=== PATIENT | male | born 1985 | race Two or more races ===

== ENCOUNTER 2016-08-21 12:08 | Inpatient (IN) | payer OTHER ==
[2016-08-21 12:22] VITALS: BMI 27.3
[2016-08-21] MEDS ORDERED: SODIUM CHLORIDE 1,000 ML IV STA (12:41)
[2016-08-21] MEDS ORDERED: HYDROmorphone HCL CARPU-JECT 1 MG/1 ML DISP.SYRIN IVPB ONE ×2 (12:41→15:38)
--- NOTE | 2016-08-21 12:41 | PDOC ---
History of Present Illness - General History Source: Patient Exam Limitations: No Limitations - History of Present Illness Initial Comments: 08/21/16 13:07 The patient is a 30 year old male, with no significant past medical history, who presents to the emergency department complaining of swelling, erythema, and pain to the right knee since yesterday. The patient reports he was sitting in the car on his way to work yesterday morning, when his pain began. The patient reports he himself was not driving. 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 The patient denies any trauma to the right knee or any bug bites. The patient reports as the pain went on his swelling and pain worsened. As per partner, the patient had a TMax of 99.6 after taking tylenol. The patient reports he can bend his knee slowly, but has to keep it straight so he can mildly tolerate the pain. The patient reports he can not bare any weight on his right leg, secondary to swelling and pain. He reports he got to the ED by hopping on his left leg. Partner reports hes been hopping on his left leg since last night. The patient denies any chills, cough, headache, dizziness, shortness of breath, or diaphoresis. The patient denies any recent travel. Allergies: None reported. Past Surgical History: None reported. Social History: Non-smoker. Denies alcohol or drug use. <Ronak Richardson - Last Filed: 08/21/16 14:34> - General History Source: Patient Exam Limitations: No Limitations <Aaliyah Crowe - Last Filed: 08/24/16 08:38> - General Chief Complaint: Redness To Affected Area Stated Complaint: KNEE PAIN Time Seen by Provider: 08/21/16 12:34 Past History <Ronak Richardson - Last Filed: 08/21/16 14:34> - Past Medical History Other medical history: none - Psycho/Social/Smoking Cessation Hx Anxiety: No Suicidal Ideation: No Smoking History: Never smoked Have you smoked in the past 12 months: No Information on smoking cessation initiated: No Hx Alcohol Use: No Drug/Substance Use Hx: No Substance Use Type: None <Aaliyah Crowe - Last Filed: 08/24/16 08:38> - Past Medical History Allergies/Adverse Reactions: Allergies Allergy/AdvReac Type Severity Reaction Status Date / Time No Known Allergies Allergy Verified 08/21/16 12:18 Home Medications: Ambulatory Orders NK [No Known Home Medication] 08/21/16 Review of Systems - Review of Systems Able to Perform ROS?: Yes Comments:: 08/21/16 13:08 GENERAL/CONSTITUTIONAL: Yes: +fever. No: chills, weakness, loss of appetite. HEAD, EYES, EARS, NOSE AND THROAT: No: change in vision, ear pain, discharge, sore throat, throat swelling. CARDIOVASCULAR: No: chest pain, lightheadedness, palpitations, syncope RESPIRATORY: No: cough, shortness of breath, wheezing, hemoptysis, stridor. GASTROINTESTINAL: No: nausea, vomiting, abdominal cramping, diarrhea, rectal bleeding, constipation. GENITOURINARY: No: dysuria, hematuria, frequency, urgency, flank pain. MUSCULOSKELETAL: Yes: +right knee pain, +right knee swelling, +right knee erythema. No: back pain, neck pain. SKIN AND BREASTS: No: lesions, pallor, rash or easy bruising. NEUROLOGIC: No: headache, vertigo, paresthesias, weakness ENDOCRINE: No: unexplained weight gain or loss HEMATOLOGIC/LYMPHATIC: No: anemia, easy bleeding, swelling nodes <Richardson,Giomilsy - Last Filed: 08/21/16 14:34> *Physical Exam - Vital Signs Last Vital Signs Temp Pulse Resp BP Pulse Ox 98.4 F 103 H 18 121/82 100 08/21/16 12:20 08/21/16 12:20 08/21/16 12:20 08/21/16 12:20 08/21/16 12:20 - Physical Exam Comments: 08/21/16 13:08 GENERAL: The patient is in no acute distress. HEAD: Normal with no signs of trauma. EYES: PERRLA, EOMI, sclera anicteric, conjunctiva clear. ENT: Ears normal, nares patent, oropharynx clear without exudates. Moist mucous membranes. NECK: Normal range of motion, supple without lymphadenopathy, JVD, or masses. LUNGS: Breath sounds equal, clear to auscultation bilaterally. No wheezes, and no crackles. HEART:Regular rate and rhythm, normal S1 and S2 without murmur, rub or gallop. ABDOMEN: Soft, nontender, normoactive bowel sounds. No guarding, no rebound. EXTREMITIES: Right knee is erythematous and warm. Fluid palpated in right knee joint. Actived range of motion is limited in the right knee due to pain. Able to flex right knee to 90 degrees. Very tender to palpation in the right knee. No clubbing or cyanosis. NEUROLOGICAL: Cranial nerves II through XII grossly intact. Normal speech. No focal neurological deficits. MUSCULOSKELETAL: Back non-tender to palpation, no CVA tenderness SKIN: Warm, Dry, normal turgor, no rashes or lesions noted. <Ronak Richardson - Last Filed: 08/21/16 14:34> - Vital Signs Last Vital Signs Temp Pulse Resp BP Pulse Ox 98.4 F 103 H 18 121/82 100 08/21/16 12:20 08/21/16 12:20 08/21/16 12:20 08/21/16 12:20 08/21/16 12:20 <Aaliyah Crowe - Last Filed: 08/24/16 08:38> ED Treatment Course - LABORATORY CBC & Chemistry Diagram: 08/21/16 12:57 08/21/16 12:57 - RADIOLOGY Radiograph Interpretation: 08/21/16 14:25 EXAM: Knee X-Ray INTERPRETED BY: Dr. Bradley REVIEWED BY: Dr. Crowe IMPRESSION: Prominent anterior soft tissues. <Ronak Richardson - Last Filed: 08/21/16 14:34> - LABORATORY CBC & Chemistry Diagram: 08/24/16 05:35 08/22/16 07:00 <Aaliyah Crowe - Last Filed: 08/24/16 08:38> Medical Decision Making - Medical Decision Making 08/21/16 14:34 First call placed to Dr. Lowry at 13:30. Second call placed to Dr. Lowry at 14.30. Awaiting call back. Case discussed at 14:32. Dr. Lowry will come evaluate the patient in approximately 40 minutes. <Ronak Richardson - Last Filed: 08/21/16 14:34> - Critical Care Time Total Critical Care Time (minutes): 35 Critical Care Statement: The care of this patient involved high complexity decision making to prevent further life threatening deterioration of the patient 's condition and/or to evalute & treat vital organ system(s) failure or risk of failure. - Medical Decision Making 08/21/16 12:41 A portion of this note was documented by scribe services under my direction. I have reviewed the details of the note, within reason, and agree with the documentation with the following case summary and management plan written by me. 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 Lowry again He will be in to see patient in 45 minutes 08/21/16 15:03 Laboratory Tests 08/21/16 08/21/16 12:57 12:57 WBC 25.0 H Hgb 15.6 Hct 46.2 Plt Count 195 Neutrophils % 83.0 H Lymphocytes % 9.0 Sodium 137 Potassium 3.8 Chloride 98 Carbon Dioxide 27 Anion Gap 12 BUN 12 Creatinine 0.8 Random Glucose 89 08/21/16 15:25 Fluid withdrawn by Ortho at bedside Will send for culture now Case reviewed with Dr Reynolds Will admit to Med Surg Will give Vancomycin and Zosyn Clinical impression: cellulitis, infected pre patellar bursitis, possibly Septic joint <Aaliyah Crowe - Last Filed: 08/24/16 08:38> *DC/Admit/Observation/Transfer - Attestations Scribe Attestion: 08/21/16 13:08 Documentation prepared by Ronak Richardson, acting as medical collections representative for Aaliyah Crowe MD. <Ronak Richardson - Last Filed: 08/21/16 14:34> - Discharge Dispostion Admit: Yes <Aaliyah Crowe - Last Filed: 04/04/17 08:38> Diagnosis at time of Disposition: Cellulitis Qualifiers: Site of cellulitis: extremity Site of cellulitis of extremity: lower extremity Laterality: right Qualified Code(s): L03.115 - Cellulitis of right lower limb - Discharge Dispostion Condition at time of disposition: Stable
[2016-08-21] MEDS ORDERED: HYDROmorphone HCL CARPU-JECT 1 MG/1 ML DISP.SYRIN ONE ×2 (13:13→15:41)
[2016-08-21 13:54] LABS: MCHC 33.7 g/dl (32.0-35.9); MEAN CELL VOLUME 86.2 fl (80-96); MEAN PLT VOLUME 8.5 fl (7.5-11.1); PLATELET COUNT 195 K/MM3 (134-434); RDW 13.9 % (11.9-15.9)
[2016-08-21 14:21] LABS: PLATELET ESTIMATE ADEQUATE (NORMAL)
[2016-08-21 14:24] LABS: ALBUMIN 4.3 g/dl (3.4-5.0); ANION GAP 12 (8-16); BILIRUBIN,TOTAL 1.7 mg/dL (0.2-1.0); CALCIUM 9.1 mg/dL (8.5-10.1); CO2 27 mmol/L (21-32); CREATININE 0.8 mg/dL (0.7-1.3); GLUCOSE,RANDOM 89 mg/dL (74-106); SGOT/AST 16 U/L (15-37); SGPT/ALT 27 U/L (12-78); TOT PROT 7.6 g/dl (6.4-8.2)
[2016-08-21 14:25] LABS: ALK PHOS 67 U/L (45-117)
[2016-08-21] MEDS ORDERED: VANCOMYCIN 1,000 MG in DEXTROSE 5%-WATER - 250 ML IVPB ONE (15:28)
[2016-08-21] MEDS ORDERED: VANCOMYCIN 1 GRAM (PRE-DOCKED) 250 ML IVPB ONE (15:42)
[2016-08-21] MEDS ORDERED: ACETAMINOPHEN 325 MG TABLET (FP) PO ONE (16:06)
[2016-08-21] MEDS ORDERED: ACETAMINOPHEN 325 MG TABLET (FP) ONE (16:06)
[2016-08-21] MEDS ORDERED: PIPERACILLIN/TAZOB 3.375 GM/50 ML PRE-DOCKED IVPB SCH (16:49)
[2016-08-21] MEDS ORDERED: VANCOMYCIN 1,250 MG in DEXTROSE 5%-WATER - 250 ML IVPB ONE (16:54)
--- NOTE | 2016-08-21 17:29 | HP ---
CHIEF COMPLAINT: right knee pain PCP:none HISTORY OF PRESENT ILLNESS: 30 year old male with no known PMHx presents to the emergency room with c/o right knee erythema, swelling, pain, fever since yesterday. Unable to bear weight on affected side. NO other associated symptoms. He is a construction equipment mechanic. Does not remember injury. Has never had skin/wound infection before. Sexually active with his . NO primary physician. No medications taken at home. ER course was notable for: (1)wbc 25; HR 107; temp 100.6 (2) knee xray showing some anterior knee swelling Recent Travel: no PAST MEDICAL HISTORY: none PAST SURGICAL HISTORY: none Social History: Smoking:no Alcohol:social Drugs: no Family History: Allergies No Known Allergies Allergy (Verified 08/21/16 12:18) HOME MEDICATIONS: Home Medications Medication Instructions Recorded NK [No Known Home Medication] 08/21/16 REVIEW OF SYSTEMS CONSTITUTIONAL: Absent: fever, chills, diaphoresis, generalized weakness, malaise, loss of appetite, weight change HEENT: Absent: rhinorrhea, nasal congestion, throat pain, throat swelling, difficulty swallowing, mouth swelling, ear pain, eye pain, visual changes CARDIOVASCULAR: Absent: chest pain, syncope, palpitations, irregular heart rate, lightheadedness , peripheral edema RESPIRATORY: Absent: cough, shortness of breath, dyspnea with exertion, orthopnea, wheezing, stridor, hemoptysis GASTROINTESTINAL: Absent: abdominal pain, abdominal distension, nausea, vomiting, diarrhea, constipation, melena, hematochezia GENITOURINARY: Absent: dysuria, frequency, urgency, hesitancy, hematuria, flank pain, genital pain MUSCULOSKELETAL: Positive: right knee swelling, erythema, pain Absent: myalgia, arthralgia, joint swelling, back pain, neck pain SKIN: Positive: right knee erythema HEMATOLOGIC/IMMUNOLOGIC: Absent: easy bleeding, easy bruising, lymphadenopathy, frequent infections ENDOCRINE: Absent: unexplained weight gain, unexplained weight loss, heat intolerance, cold intolerance NEUROLOGIC: Absent: headache, focal weakness or paresthesias, dizziness, unsteady gait, seizure, mental status changes, bladder or bowel incontinence PSYCHIATRIC: Absent: anxiety, depression, suicidal or homicidal ideation, hallucinations. PHYSICAL EXAMINATION Vital Signs - 24 hr 08/21/16 16:12 Temperature 100.6 F H Pulse Rate [ 108 H Apical] Respiratory 20 Rate Blood Pressure 118/67 [Left Arm] O2 Sat by Pulse 95 Oximetry (%) GENERAL: Awake, alert, and fully oriented, in no acute distress. HEAD: Normal with no signs of trauma. EYES: Pupils equal, round and reactive to light, extraocular movements intact, sclera anicteric, conjunctiva clear. No lid lag. EARS, NOSE, THROAT: Ears normal, nares patent, oropharynx clear without exudates. Moist mucous membranes. NECK: Normal range of motion, supple without lymphadenopathy, JVD, or masses. LUNGS: Breath sounds equal, clear to auscultation bilaterally. No wheezes, and no crackles. No accessory muscle use. HEART: Regular rate and rhythm, normal S1 and S2 without murmur, rub or gallop. ABDOMEN: Soft, nontender, not distended, normoactive bowel sounds, no guarding, no rebound, no masses. No hepatomegaly or splenomegaly. MUSCULOSKELETAL: Normal range of motion at all joints. No bony deformities or tenderness. No CVA tenderness. UPPER EXTREMITIES: 2+ pulses, warm, well-perfused. No cyanosis. No clubbing. No peripheral edema. LOWER EXTREMITIES: 2+ pulses, warm, well-perfused. No calf tenderness. No peripheral edema. Right knee swelling, erythema, limited ROM, NEUROLOGICAL: Cranial nerves II-XII intact. Normal speech. Normal gait. PSYCHIATRIC: Cooperative. Good eye contact. Appropriate mood and affect. SKIN: right knee cellulits ASSESSMENT/PLAN: 30 year old male with no known past medical history presents with right knee swelling, erythema and pain, admitted for sepsis secondary to bursitis. #sepsis secondary to right knee cellulitis/bursitis: -trend white count, monitor vitals -lactic acid; IVF -prophylactic vanc/zosyn -fluid culture. blood culture -knee xray showing anterior soft tissue swelling -MRI -ID consult -ortho consult FEN: Fluids: NS 125mls/hr Electrolytes: wnl Diet: regular VTE: lovenox Disposition: IV antibiotics Problem List - Problem (1) Septic infrapatellar bursitis of right knee Code(s): M71.161 - OTHER INFECTIVE BURSITIS, RIGHT KNEE B96.89 - OTH BACTERIAL AGENTS THE CAUSE OF DISEASES CLASSD [id number] Visit type - Emergency Visit Emergency Visit: Yes ED Registration Date: 08/21/16 Care time: The patient presented to the Emergency Department on the above date and was hospitalized for further evaluation of their emergent condition. - New Patient This patient is new to me today: Yes Date on this admission: 08/21/16 - Critical Care Critical Care patient: No
--- NOTE | 2016-08-21 17:45 | CONSULT ---
Consult Consult Specialty:: infectious diseases Reason for Consultation:: cellulitis of the knee joint - History of Present Illness History of Present Illness: 30 year old male with no known PMHx presents to the emergency room with c/o right knee erythema, swelling, pain, fever since yesterday. Unable to bear weight on affected side. NO other associated symptoms. 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 patient stated the swelling came on suddenly - History Source History Provided By: Patient Limitations to Obtaining History: No Limitations - Alcohol/Substance Use Hx Alcohol Use: No - Smoking History Smoking history: Never smoked Have you smoked in the past 12 months: No Home Medications - Allergies Allergies/Adverse Reactions: Allergies Allergy/AdvReac Type Severity Reaction Status Date / Time No Known Allergies Allergy Verified 08/21/16 12:18 - Home Medications Home Medications: Ambulatory Orders NK [No Known Home Medication] 08/21/16 Review of Systems - Review of Systems Constitutional: reports: Chills, Fever Eyes: reports: No Symptoms HENT: reports: No Symptoms Neck: reports: No Symptoms Cardiovascular: reports: No Symptoms Respiratory: reports: No Symptoms Gastrointestinal: reports: No Symptoms Genitourinary: reports: No Symptoms Musculoskeletal: reports: Joint Pain, Joint Swelling Integumentary: reports: Change in Color, Erythema Neurological: reports: No Symptoms Endocrine: reports: No Symptoms Hematology/Lymphatic: reports: No Symptoms Psychiatric: reports: No Symptoms Physical Exam Vital Signs: Vital Signs Temperature 100.6 F H 08/21/16 16:12 Pulse Rate 108 H 08/21/16 16:12 Respiratory Rate 20 08/21/16 16:12 Blood Pressure 118/67 08/21/16 16:12 O2 Sat by Pulse Oximetry (%) 95 08/21/16 16:12 Constitutional: Yes: Well Nourished, Calm, Moderate Distress Eyes: Yes: Conjunctiva Clear HENT: Yes: Atraumatic, Normocephalic Neck: Yes: Supple, Trachea Midline Cardiovascular: Yes: Regular Rate and Rhythm Respiratory: Yes: Regular, CTA Bilaterally Gastrointestinal: Yes: Normal Bowel Sounds, Soft Musculoskeletal: Yes: Joint Stiffness, Joint Swelling, Other Extremities: Yes: Erythema (knee joint right) Integumentary: Yes: Erythema (all around rt kne joint) Neurological: Yes: Alert, Oriented Psychiatric: Yes: Alert Imaging - Results X-ray: Report Reviewed, Image Reviewed Assessment/Plan patient was evaluated by ortho aspiration tried with minimal fluid i think this is a septic joint septic joint cellulitis of the rt knee fever plan will start vanco zosyn stat mri if the joint does not improve will need opening
[2016-08-21] MEDS ORDERED: PIPERACILLIN/TAZOB 3.375 GM 3.375 GM in DEXTROSE 5%-WATER - 50 ML IVPB SCH (18:00)
--- NOTE | 2016-08-21 18:09 | PN ---
Teaching Attending Note Name of Resident: Jessa Guerrero ATTENDING PHYSICIAN STATEMENT I saw and evaluated the patient. I reviewed the resident's note and discussed the case with the resident. I agree with the resident's findings and plan as documented. SUBJECTIVE: This is a 30-year-old man with no significant past medical history who comes to the ER today because of pain in his right leg and knee. This started suddenly yesterday while he was sitting in a car. He has had fever. He is unable to bend his right knee and is unable to walk on his right leg. He denies trauma or bites to his right leg/knee. He works in construction. He denies recent travel. OBJECTIVE: Vital Signs Period Temp Pulse Resp BP Sys/Forman Pulse Ox Last 24 Hr 98.4 F-100.6 F 103-108 18-20 118-121/67-82 95-100 HEART: S1 S2, tachycardic LUNGS: Clear ABDOMEN: Soft, non-tender, non-distended, normal BS EXTREMITIES: Erythema and tenderness of right knee and proximal right lower leg. Fluctuant area distal to patella ASSESSMENT AND PLAN: This is a healthy 30-year-old man who presented to the ER complaining of sudden onset of redness, pain and swelling involving his right knee. 1. Sepsis secondary to RLE cellulitis and pre-patellar bursitis vs septic arthritis of right knee - Vancomycin ordered - Orthopedic surgery, ID consults - Check lactic acid
--- NOTE | 2016-08-21 23:36 | PN ---
Progress Note (short form) - Note Progress Note: consult dictated septic prepatellar bursitis aspiration performed in ER, cultures sent continue abx will follow
[2016-08-22 00:21] LABS: URINE MARIJUANA THC NEGATIVE ng/ml (CUTOFF=50)
[2016-08-22] MEDS: ACETAMINOPHEN 325 MG TABLET (FP) PO PRN ×3 (00:34→17:26)
[2016-08-22] MEDS ORDERED: PIPERACILLIN/TAZOB 3.375 GM 50 ML IVPB ONE (01:39)
[2016-08-22] MEDS: PIPERACILLIN/TAZOB 3.375 GM 50 ML IVPB SCH ×3 (01:43→17:33)
[2016-08-22] MEDS ORDERED: PIPERACILLIN/TAZOB 3.375 GM/50 ML PRE-DOCKED IVPB ONE (01:48)
[2016-08-22] MEDS ORDERED: morphine CARPU-JECT 2 MG/1 ML DISP.SYRIN IVPUSH ONE ×2 (01:50→03:08)
--- NOTE | 2016-08-22 03:15 | HOSP ---
Subjective - Review of Symptoms Events since last encounter: Pt had fever of 102.4 one hour after receiving tylenol. Morphine 2mg IVP ordered. Zokevin ordered x1 dose (as next dose to start was the follow day's afternoon). Approximately 1 hour after getting morphine pt still in severe pain and looks to be in mild/moderate distress from pain. Another 2mg of morphine IVP ordered. Also ordered ms-contin 15 mg bid for baseline pain control. Temp is down to 100.9 at this time. Physical Examination Vital Signs: Vital Signs Temperature 100.9 F H 08/22/16 02:12 Pulse Rate 113 H 08/22/16 01:33 Respiratory Rate 20 08/22/16 01:33 Blood Pressure 115/61 08/22/16 01:33 O2 Sat by Pulse Oximetry (%) 96 08/21/16 20:47 Visit type - Emergency Visit Emergency Visit: Yes ED Registration Date: 08/21/16 Care time: The patient presented to the Emergency Department on the above date and was hospitalized for further evaluation of their emergent condition. - New Patient This patient is new to me today: Yes Date on this admission: 08/26/16 - Critical Care Critical Care patient: No
[2016-08-22] MEDS: VANCOMYCIN 1,250 MG in DEXTROSE 5%-WATER - 250 ML IVPB SCH ×2 (03:43→15:51)
[2016-08-22 08:23] LABS: BASOPHIL 0.1 % (0-2.0); MCH 29.1 pg (25.7-33.7); MEAN CELL VOLUME 85.6 fl (80-96); MEAN PLT VOLUME 8.3 fl (7.5-11.1); NEUTROPHILS 89.2 % (42.8-82.8); PLATELET COUNT 176 K/MM3 (134-434); RDW 13.4 % (11.9-15.9); WHITE BLOOD COUNT 27.7 K/mm3 (4.0-10.0)
[2016-08-22 08:56] LABS: CALCIUM 8.6 mg/dL (8.5-10.1); CREATININE 0.7 mg/dL (0.7-1.3)
--- NOTE | 2016-08-22 09:27 | PN ---
Progress Note, Physician - Current Medication List Current Medications: Active Medications Acetaminophen (Tylenol -) 650 mg PO Q4H PRN PRN Reason: FEVER OR PAIN Last Admin: 08/22/16 06:54 Dose: 650 mg Enoxaparin Sodium (Lovenox -) 40 mg SQ DAILY ADRIAN Vancomycin HCl 1,250 mg/ (Dextrose) 250 mls @ 250 mls/hr IVPB BID@0400,1600 ADRIAN PRN Reason: Protocol Last Admin: 08/22/16 03:43 Dose: 250 mls/hr Piperacillin Sod/Tazobactam Sod (Zosyn 3.375gm Ivpb (Pre-Docked)) 50 mls @ 100 mls/hr IVPB Q8H-IV ADRIAN PRN Reason: Protocol Last Admin: 08/22/16 01:43 Dose: 100 mls/hr Sodium Chloride (Normal Saline -) 1,000 mls @ 125 mls/hr IV ASDIR ADRIAN Oxycodone HCl (Roxicodone -) 5 mg PO Q4H PRN PRN Reason: PAIN - Objective Vital Signs: Vital Signs Temperature 99.5 F 08/22/16 06:00 Pulse Rate 103 H 08/22/16 06:00 Respiratory Rate 20 08/22/16 06:00 Blood Pressure 106/66 08/22/16 06:00 O2 Sat by Pulse Oximetry (%) 96 08/21/16 20:47 Constitutional: Yes: Well Nourished, No Distress, Calm Eyes: Yes: WNL, Conjunctiva Clear HENT: Yes: WNL, Atraumatic, Normocephalic Neck: Yes: WNL, Supple, Trachea Midline Cardiovascular: Yes: WNL, Regular Rate and Rhythm Respiratory: Yes: WNL, Regular, CTA Bilaterally Gastrointestinal: Yes: WNL, Normal Bowel Sounds Musculoskeletal: Yes: Other (erythema, warmth and stiffness of left knee) Extremities: Yes: WNL Edema: No Integumentary: Yes: WNL Neurological: Yes: WNL, Alert, Oriented ...Motor Strength: WNL Psychiatric: Yes: WNL Labs: CBC, BMP 08/22/16 07:00 08/22/16 07:00 Impression/Plan Impression/Plan: 30 year old man admitted for sepsis due to infectious bersitis with surrounding cellulitis -was febrile overnight but non-toxic appearing and hemodynamically stable -pt states erythema is markedly improved from yesterday -cont vanc/zosyn as per ID recs -s/p aspiration by ortho attending -follow up cultures -start IVF at 125/hr Visit type - Emergency Visit Emergency Visit: Yes ED Registration Date: 08/21/16 Care time: The patient presented to the Emergency Department on the above date and was hospitalized for further evaluation of their emergent condition. - New Patient This patient is new to me today: Yes Date on this admission: 08/22/16 - Critical Care Critical Care patient: No
[2016-08-22] MEDS: SODIUM CHLORIDE 1,000 ML IV SCH ×2 (09:42→20:00)
[2016-08-22] MEDS: ENOXAPARIN NA (PORCINE) 40 MG/0.4 ML DISP.SYRIN SQ SCH ×2 (09:48→15:56)
[2016-08-22] MEDS ORDERED: morphine SO4 SUSTAINED ACTING 15 MG TABLET.SA PO SCH (10:00)
[2016-08-22] MEDS: oxyCODONE HCL 5 MG TABLET PO PRN ×2 (11:37→16:03)
[2016-08-22] MEDS ORDERED: LIDOCAINE HCL 1%, 10 MG/ML (50 mL VIAL) SQ ONE (17:12)
[2016-08-22] MEDS ORDERED: morphine CARPU-JECT 4 MG/1 ML DISP.SYRIN IVPUSH ONE ×2 (17:13→18:00)
[2016-08-22] MEDS ORDERED: LORAZEPAM CARPU-JECT 2 MG/ML DISP.SYRIN IVPUSH ONE (17:14)
--- NOTE | 2016-08-22 17:27 | PN ---
Progress Note, Physician History of Present Illness: patient spiking fevers erythema spreading ortho reevaluating plan to open the joint by bedside tenderness and fluctuation still present - Current Medication List Current Medications: Active Medications Acetaminophen (Tylenol -) 650 mg PO Q4H PRN PRN Reason: FEVER OR PAIN Last Admin: 08/22/16 06:54 Dose: 650 mg Enoxaparin Sodium (Lovenox -) 40 mg SQ DAILY [facility] Last Admin: 08/22/16 15:56 Dose: 40 mg Vancomycin HCl 1,250 mg/ (Dextrose) 250 mls @ 250 mls/hr IVPB BID@0400,1600 ADRIAN PRN Reason: Protocol Last Admin: 08/22/16 15:51 Dose: 250 mls/hr Piperacillin Sod/Tazobactam Sod (Zosyn 3.375gm Ivpb (Pre-Docked)) 50 mls @ 100 mls/hr IVPB Q8H-IV ADRIAN PRN Reason: Protocol Last Admin: 08/22/16 09:40 Dose: 100 mls/hr Sodium Chloride (Normal Saline -) 1,000 mls @ 125 mls/hr IV ASDIR ADRIAN Last Admin: 08/22/16 09:42 Dose: 125 mls/hr Oxycodone HCl (Roxicodone -) 5 mg PO Q4H PRN PRN Reason: PAIN Last Admin: 08/22/16 16:03 Dose: 5 mg Oxycodone HCl (Roxicodone -) 10 mg PO Q4H PRN PRN Reason: PAIN Last Admin: 08/22/16 11:37 Dose: 10 mg - Objective Vital Signs: Vital Signs Temperature 99.9 F H 08/22/16 14:42 Pulse Rate 101 H 08/22/16 14:42 Respiratory Rate 19 08/22/16 14:42 Blood Pressure 111/63 08/22/16 14:42 O2 Sat by Pulse Oximetry (%) 96 08/22/16 09:00 Constitutional: Yes: Calm, Mild Distress Cardiovascular: Yes: Regular Rate and Rhythm Respiratory: Yes: Regular, CTA Bilaterally Gastrointestinal: Yes: Normal Bowel Sounds, Soft Musculoskeletal: Yes: Joint Swelling, Other Extremities: Yes: Erythema (knee joint right) Integumentary: Yes: Erythema, Other Neurological: Yes: Alert, Oriented Psychiatric: Yes: Alert, Oriented Labs: CBC, BMP 08/22/16 07:00 08/22/16 07:00 - ....Imaging MRI: Report Reviewed, Image Reviewed Assessment/Plan patient was evaluated by ortho aspiration tried with minimal fluid i think this is a septic joint septic joint cellulitis of the rt knee fever plan continue vanco zosyn if patient does not improve after drainage might need exploration rest as per the team
[2016-08-22] MEDS ORDERED: LIDOCAINE HCL 1%, 10 MG/ML (20ML VIAL) NR ONE (17:30)
--- NOTE | 2016-08-22 18:08 | PN ---
Progress Note (short form) - Note Progress Note: Pt c/o continued pain, no improvement since yesterday Tm102 RLE persistent fluctuance mild erythema focal warmth no effusion NVID MRI: collection in prepatellar bursa a/p: septic prepatellar bursitis I reviewed today's findings with the patient. -advised that he has a significant collection on MRI and has spiked fevers through abx -recommend bedside lancing and packing -reviewed risks: bleeding, persistent or spreading of infection, skin nerve injury, need for further debridement -benefits: help to clear infection, improve pain -alternative: wait with antibiotics, with a large collection this may not be effective and will take considerably longer to heal -patient's questions were addressed, he elected to proceed Procedure: The skin was prepped with chlorhexidine and injected about the area of fluctuance with 20cc of 1% lidocaine. The patient was given 4mg of morphine IV push and 1 mg of ativan for comfort. The skin was repreped and a sterile field was established. The area of fluctuance was lanced with an 11 blade. Blunt spreading was used to dissect through any pockets and approximately 10cc of pus was expressed from the wound. 4mg of morphine additional was given during the blunt spreading. Iodoform packing was then placed into the cavity. A compressive dressing was placed. -pulse-ox placed, showing patient at 92% O2 sat after procedure, will start NC 2L, monitor pulse ox while waiting for morphine to wear off -will continue abx -continue DVT proph -f/u cx/sensitivities -plan to remove packing 1-2 days
--- NOTE | 2016-08-22 23:35 | CONS ---
DATE OF CONSULTATION: DATE OF DICTATION: 08/21/2016 REASON FOR CONSULTATION: Right knee pain. HISTORY OF PRESENT ILLNESS: This is a 30-year-old gentleman who presented to the emergency room complaining of right knee pain, swelling, and erythema as well as subjective fever. He is having difficulty ambulating. Did not report any injury. Denies any radiating pain, numbness, or tingling. No previous joint complaints. PAST MEDICAL HISTORY: Denies. PAST SURGICAL HISTORY: Denies. SOCIAL HISTORY: Denies tobacco use, social alcohol use. MEDICATION: Denies. REVIEW OF SYSTEMS: Positive for fever. Otherwise no respiratory, GI, , hematologic, endocrine, neurologic symptoms. PHYSICAL EXAMINATION: Vital signs: This gentleman has a current temperature of 100.6 and is somewhat tachycardic. General: He is alert and oriented x3. He is seen lying in hospital stretcher. Extremities: Examination of the right lower extremity demonstrates erythema about the anterior aspect of the knee. There were no breaks in the skin or other lesions. There is swelling over the inferior portion of the patella. There is no effusion. Range of motion is 5 degrees to 10 degrees with discomfort. Abdomen: Soft and nontender. Distal sensation is intact by touch. 2+ dorsalis pedis pulse, 5/5 distal motor. It should be noted the area of swelling was palpated and found to be slightly fluctuant. Radiographs reviewed demonstrating soft tissue swelling present on the physical examination. He has got no bony pathology. Laboratory results are reviewed demonstrating elevated white count to 25. ASSESSMENT: A 30-year-old male with septic prepatellar bursitis. PLAN: I reviewed today's findings with the patient. I discussed that he has infection to the anterior portion of his knee. I recommended aspiration at this point to obtain a culture. I reviewed the risks, benefits, and alternatives of aspiration and after reviewing these, patient elected to proceed. PROCEDURE: The right knee was prepped with chlorhexidine. Under sterile technique, 18-gauge needle was inserted into the bursa. Scant amount of purulent fluid was withdrawn, less than 1 mL. No further fluid was able to be aspirated at that point. The needle was withdrawn and a dressing was placed. Cultures were sent. The patient after aspiration was started on antibiotics . We will await the cultures to target his antibiotic regimen. He will be admitted for IV antibiotics, placed on DVT prophylaxis. He may weight bear as tolerated. Will follow up tomorrow. Jania [id number] MTDD
[2016-08-23] MEDS: PIPERACILLIN/TAZOB 3.375 GM 50 ML IVPB SCH ×3 (01:44→18:18)
[2016-08-23] MEDS: VANCOMYCIN 1,250 MG in DEXTROSE 5%-WATER - 250 ML IVPB SCH (03:55)
[2016-08-23] MEDS: oxyCODONE HCL 5 MG TABLET PO PRN ×3 (03:59→16:08)
[2016-08-23] MEDS: SODIUM CHLORIDE 1,000 ML IV SCH ×3 (04:00→15:22)
[2016-08-23 09:46] LABS: BASOPHIL 0.1 % (0-2.0); EOSINOPHIL 0.1 % (0-4.5); MCH 29.2 pg (25.7-33.7); MCHC 33.9 g/dl (32.0-35.9); MEAN CELL VOLUME 86.1 fl (80-96); MEAN PLT VOLUME 8.3 fl (7.5-11.1); NEUTROPHILS 84.2 % (42.8-82.8); PLATELET COUNT 164 K/MM3 (134-434); RDW 13.6 % (11.9-15.9); WHITE BLOOD COUNT 16.9 K/mm3 (4.0-10.0)
[2016-08-23] MEDS: ENOXAPARIN NA (PORCINE) 40 MG/0.4 ML DISP.SYRIN SQ SCH (09:59)
--- NOTE | 2016-08-23 12:17 | PN ---
Progress Note, Physician - Current Medication List Current Medications: Active Medications Acetaminophen (Tylenol -) 650 mg PO Q4H PRN PRN Reason: FEVER OR PAIN Last Admin: 08/22/16 17:26 Dose: 650 mg Enoxaparin Sodium (Lovenox -) 40 mg SQ DAILY [facility] Last Admin: 08/23/16 09:59 Dose: 40 mg Vancomycin HCl 1,250 mg/ (Dextrose) 250 mls @ 250 mls/hr IVPB BID@0400,1600 ADRIAN PRN Reason: Protocol Last Admin: 08/23/16 03:55 Dose: 250 mls/hr Piperacillin Sod/Tazobactam Sod (Zosyn 3.375gm Ivpb (Pre-Docked)) 50 mls @ 100 mls/hr IVPB Q8H-IV ADRIAN PRN Reason: Protocol Last Admin: 08/23/16 09:58 Dose: 100 mls/hr Sodium Chloride (Normal Saline -) 1,000 mls @ 125 mls/hr IV ASDIR [facility]RIAN Last Admin: 08/23/16 09:59 Dose: Not Given Oxycodone HCl (Roxicodone -) 5 mg PO Q4H PRN PRN Reason: PAIN Last Admin: 08/23/16 09:58 Dose: 5 mg Oxycodone HCl (Roxicodone -) 10 mg PO Q4H PRN PRN Reason: PAIN Last Admin: 08/22/16 11:37 Dose: 10 mg - Objective Vital Signs: Vital Signs Temperature 99.6 F 08/23/16 06:00 Pulse Rate 102 H 08/23/16 06:00 Respiratory Rate 18 08/23/16 06:00 Blood Pressure 106/58 08/23/16 06:00 O2 Sat by Pulse Oximetry (%) 96 08/22/16 21:00 Constitutional: Yes: Well Nourished, No Distress, Calm Eyes: Yes: WNL, Conjunctiva Clear HENT: Yes: WNL, Atraumatic, Normocephalic Neck: Yes: WNL, Supple, Trachea Midline Cardiovascular: Yes: WNL, Regular Rate and Rhythm Respiratory: Yes: WNL, Regular, CTA Bilaterally Gastrointestinal: Yes: WNL, Normal Bowel Sounds Musculoskeletal: Yes: WNL Extremities: Yes: Erythema (less intense in color but now spreading up thigh) Edema: No Integumentary: Yes: WNL Neurological: Yes: WNL, Alert, Oriented ...Motor Strength: WNL Psychiatric: Yes: WNL Labs: CBC, BMP 08/23/16 09:15 08/22/16 07:00 Impression/Plan Impression/Plan: 30 year old man admitted for sepsis due to infectious bersitis with surrounding cellulitis -was febrile yesterday but non-toxic appearing and hemodynamically stable -pt states erythema is markedly improved in intensity of color but now spreading to upper thigh -cont vanc/zosyn as per ID recs -s/p aspiration by ortho attending and now s/p bedside I+D 08/23 -follow up cultures -cont IVF at 125/hr Visit type - Emergency Visit Emergency Visit: Yes ED Registration Date: 08/21/16 Care time: The patient presented to the Emergency Department on the above date and was hospitalized for further evaluation of their emergent condition. - New Patient This patient is new to me today: No - Critical Care Critical Care patient: No
[2016-08-23 12:54] LABS: BASOPHIL 0.1 % (0-2.0); EOSINOPHIL 0.2 % (0-4.5); MCHC 33.4 g/dl (32.0-35.9); MEAN CELL VOLUME 86.8 fl (80-96); MEAN PLT VOLUME 8.5 fl (7.5-11.1); NEUTROPHILS 82.8 % (42.8-82.8); PLATELET COUNT 168 K/MM3 (134-434); RDW 13.9 % (11.9-15.9); WHITE BLOOD COUNT 17.7 K/mm3 (4.0-10.0)
--- NOTE | 2016-08-23 13:20 | PN ---
Progress Note (short form) - Note Progress Note: Orthopedics PA Progress Note S: Patient feeling well. States his pain has improved today. Also notes less swelling and redness. Denies fever/chills. O: NAD. VSS. Afebrile. R knee exam: Dressings removed. Wound packing removed. Pressure dressing applied. Erythema and warmth. Mild swelling. Limited ROM secondary to pain. NVID. WBC 17.7 Wound cxs + for growth of pyogenes beta hemolytic strep. A/P: 30 y/o male admitted with septic prepatellar bursitis -Packing removed today, pressure dressing applied -WBC decreased today, patient afebrile -Continue IV abx as per ID -Continue DVT prophylaxis
--- NOTE | 2016-08-23 15:06 | PN ---
Progress Note, Physician History of Present Illness: patients knee opened at bedside pus and fluid evacuated from the wound patient feels a little better pain still present - Current Medication List Current Medications: Active Medications Acetaminophen (Tylenol -) 650 mg PO Q4H PRN PRN Reason: FEVER OR PAIN Last Admin: 08/22/16 17:26 Dose: 650 mg Enoxaparin Sodium (Lovenox -) 40 mg SQ DAILY [facility]AN Last Admin: 08/23/16 09:59 Dose: 40 mg Piperacillin Sod/Tazobactam Sod (Zosyn 3.375gm Ivpb (Pre-Docked)) 50 mls @ 100 mls/hr IVPB Q8H-IV ADRIAN PRN Reason: Protocol Last Admin: 08/23/16 09:58 Dose: 100 mls/hr Sodium Chloride (Normal Saline -) 1,000 mls @ 125 mls/hr IV ASDIR ADRIAN Last Admin: 08/23/16 09:59 Dose: Not Given Clindamycin Phosphate (Cleocin 600 Mg Premix Ivpb -) 50 mls @ 100 mls/hr IVPB Q8H-IV ADRIAN Oxycodone HCl (Roxicodone -) 5 mg PO Q4H PRN PRN Reason: PAIN Last Admin: 08/23/16 09:58 Dose: 5 mg Oxycodone HCl (Roxicodone -) 10 mg PO Q4H PRN PRN Reason: PAIN Last Admin: 08/22/16 11:37 Dose: 10 mg - Objective Vital Signs: Vital Signs Temperature 98.7 F 08/23/16 14:48 Pulse Rate 100 H 08/23/16 14:48 Respiratory Rate 18 08/23/16 14:48 Blood Pressure 130/64 08/23/16 14:48 O2 Sat by Pulse Oximetry (%) 96 08/22/16 21:00 Constitutional: Yes: Well Nourished, Calm, Mild Distress Cardiovascular: Yes: Regular Rate and Rhythm Respiratory: Yes: Regular, CTA Bilaterally Gastrointestinal: Yes: Normal Bowel Sounds, Soft Musculoskeletal: Yes: Joint Stiffness, Joint Swelling, Other (cellulitis) Extremities: Yes: Erythema (of the knee joint) Integumentary: Yes: Erythema, Other Wound/Incision: Yes: Dressing Dry and Intact Neurological: Yes: Alert, Oriented Psychiatric: Yes: Alert, Oriented Labs: CBC, BMP 08/23/16 12:29 08/22/16 07:00 Assessment/Plan cx report noted i think this is a septic joint septic joint cellulitis of the rt knee fever plan will stop vanco will change to clinda zosyn await for sensitivities report wbc is still higher and has gone up patient needs a knee washout resent the cultures
[2016-08-23] MEDS: CLINDAMYCIN 600MG PREMIX IVPB 50 ML IVPB SCH (16:07)
--- NOTE | 2016-08-23 21:59 | PN ---
Physical Exam: SUBJECTIVE: Patient seen and examined still with pain. afebrile. Bedside I&D. OBJECTIVE: Vital Signs Period Temp Pulse Resp BP Sys/Forman Pulse Ox Last 24 Hr 98.7 F-101.2 F 100-107 18-18 106-130/58-64 95 GENERAL: The patient is awake, alert, and fully oriented, in no acute distress. HEAD: Normal with no signs of trauma. EYES: PERRL, extraocular movements intact, sclera anicteric, conjunctiva clear. No ptosis. ENT: Ears normal, nares patent, oropharynx clear without exudates, moist mucous membranes. NECK: Trachea midline, full range of motion, supple. LUNGS: Breath sounds equal, clear to auscultation bilaterally, no wheezes, no crackles, no accessory muscle use. HEART: Regular rate and rhythm, S1, S2 without murmur, rub or gallop. ABDOMEN: Soft, nontender, nondistended, normoactive bowel sounds, no guarding, no rebound, no hepatosplenomegaly, no masses. EXTREMITIES: 2+ pulses, warm, well-perfused, no edema. Right knee erythema, surrounding edema, NEUROLOGICAL: Cranial nerves II through XII grossly intact. Normal speech, gait not observed. PSYCH: Normal mood, normal affect. SKIN: Warm, dry, normal turgor, no rashes or lesions noted Laboratory Results - last 24 hr 08/23/16 08/23/16 09:15 12:29 WBC 16.9 H D 17.7 H RBC 4.08 4.20 Hgb 11.9 D 12.2 Hct 35.1 L 36.5 MCV 86.1 86.8 MCHC 33.9 33.4 RDW 13.6 13.9 Plt Count 164 168 MPV 8.3 8.5 Neutrophils % 84.2 H 82.8 Lymphocytes % 7.8 L D 9.1 Monocytes % 7.8 7.8 Eosinophils % 0.1 D 0.2 D Basophils % 0.1 0.1 Active Medications Generic Name Dose Route Start Last Admin Trade Name Freq PRN Reason Stop Dose Admin Acetaminophen 650 mg 08/21/16 16:47 08/22/16 17:26 Tylenol - PO 650 mg Q4H PRN Administration FEVER OR PAIN Enoxaparin Sodium 40 mg 08/22/16 10:00 08/23/16 09:59 Lovenox - SQ 40 mg DAILY ADRIAN Administration Piperacillin Sod/Tazobactam Sod 50 mls @ 100 mls/hr 08/22/16 02:00 08/23/16 18: 18 Zosyn 3.375gm Ivpb (Pre-Docked) IVPB 100 mls/hr Q8H-IV ADRIAN Administration Protocol Sodium Chloride 1,000 mls @ 125 mls/hr 08/22/16 09:15 08/23/16 15:22 Normal Saline - IV 125 mls/hr ASDIR ADRIAN Administration Clindamycin Phosphate 50 mls @ 100 mls/hr 08/23/16 16:00 08/23/16 16:07 Cleocin 600 Mg Premix Ivpb - IVPB 100 mls/hr Q8H-IV ADRIAN Administration Oxycodone HCl 5 mg 08/22/16 09:15 08/23/16 09:58 Roxicodone - PO 5 mg Q4H PRN Administration PAIN Oxycodone HCl 10 mg 08/22/16 09:24 08/23/16 16:08 Roxicodone - PO 10 mg Q4H PRN Administration PAIN ASSESSMENT/PLAN: 30 year old male with no known past medical history presents with right knee swelling, erythema and pain, admitted for sepsis secondary to bursitis. #sepsis secondary to right knee cellulitis/bursitis: drain today -trend white count, monitor vitals -lactic acid; IVF -IV zosyn and clinda -fluid culture. blood culture -knee xray showing anterior soft tissue swelling -MRI -ID consult -ortho consult FEN: Fluids: NS 125mls/hr Electrolytes: wnl Diet: regular VTE: lovenox Disposition: IV antibiotics Problem List - Problems (1) Septic infrapatellar bursitis of right knee Code(s): M71.161 - OTHER INFECTIVE BURSITIS, RIGHT KNEE B96.89 - OTH BACTERIAL AGENTS THE CAUSE OF DISEASES CLASSD [id number] Visit type - Emergency Visit Emergency Visit: Yes ED Registration Date: 08/21/16 Care time: The patient presented to the Emergency Department on the above date and was hospitalized for further evaluation of their emergent condition. - New Patient This patient is new to me today: No - Critical Care Critical Care patient: No
[2016-08-24] MEDS: CLINDAMYCIN 600MG PREMIX IVPB 50 ML IVPB SCH ×3 (01:55→17:16)
[2016-08-24] MEDS: PIPERACILLIN/TAZOB 3.375 GM 50 ML IVPB SCH ×3 (02:47→17:48)
[2016-08-24 07:29] LABS: BASOPHIL 0.2 % (0-2.0); EOSINOPHIL 0.2 % (0-4.5); MCH 29.5 pg (25.7-33.7); MCHC 34.2 g/dl (32.0-35.9); MEAN CELL VOLUME 86.3 fl (80-96); MEAN PLT VOLUME 8.5 fl (7.5-11.1); NEUTROPHILS 80.2 % (42.8-82.8); PLATELET COUNT 205 K/MM3 (134-434); RDW 13.7 % (11.9-15.9); WHITE BLOOD COUNT 14.7 K/mm3 (4.0-10.0)
[2016-08-24] MEDS: ENOXAPARIN NA (PORCINE) 40 MG/0.4 ML DISP.SYRIN SQ SCH (09:54)
[2016-08-24] MEDS: SODIUM CHLORIDE 1,000 ML IV SCH (09:57)
[2016-08-24] MEDS ORDERED: DOCUSATE SODIUM 100 MG CAPSULE (FP) PO SCH (10:00)
[2016-08-24] MEDS ORDERED: POLYETHYLENE GLYCOL 3350 119 GM BTL PO SCH (10:00)
--- NOTE | 2016-08-24 13:27 | PN ---
Progress Note (short form) - Note Progress Note: Pt states anterior pain is better but still quite painful especially with trying to walk. Tm100 RLE small fluctuance more erythema now extending into the thigh and the calf focal warmth no effusion NVID WBC 14 a/p: septic prepatellar bursitis I reviewed today's findings with the patient. We discussed that some factors appear improved. His white count is down though not to normal. His maximum temperature is 100. That being said, he appears to have more erythema about the leg and still has significant pain. There was some fluctuance to the wounds today. I placed a cotton swab from a culture into the open wound and purulent material was again obtained. A new culture was sent. Given this finding, I believe that an open debridement is the best option to help encourage a timely resolution of this infection. I reviewed there continues to be no evidence of involvement of the joint itself. I reviewed risks of debridement, again the same as yesterday including bleeding, skin nerve injury, need for further surgery, continued presence or spread of infection. We reviewed that this would be done under general anesthesia and carries risks such as heart attack, stroke, DVT, PE or . We reviewed the alternative of continued observation. The patient has elected to proceed with debridement. This will be performed this evening. A drain will be placed. Will continue IV abx. Will continue DVT proph.
--- NOTE | 2016-08-24 14:12 | PN ---
Physical Exam: SUBJECTIVE: Patient seen and examined, increased pain this am. Admits to more redness and warmth of area, right knee. OBJECTIVE: Vital Signs Period Temp Pulse Resp BP Sys/Forman Pulse Ox Last 24 Hr 97.9 F-101.2 F 92-111 18-20 107-130/51-82 95 GENERAL: The patient is awake, alert, and fully oriented, in no acute distress. HEAD: Normal with no signs of trauma. EYES: PERRL, extraocular movements intact, sclera anicteric, conjunctiva clear. No ptosis. ENT: Ears normal, nares patent, oropharynx clear without exudates, moist mucous membranes. NECK: Trachea midline, full range of motion, supple. LUNGS: Breath sounds equal, clear to auscultation bilaterally, no wheezes, no crackles, no accessory muscle use. HEART: Regular rate and rhythm, S1, S2 without murmur, rub or gallop. ABDOMEN: Soft, nontender, nondistended, normoactive bowel sounds, no guarding, no rebound, no hepatosplenomegaly, no masses. EXTREMITIES: 2+ pulses, warm, well-perfused, no edema. Right knee, erythematous increased from yesterday extending distally and proximally; no puss draining when palpated NEUROLOGICAL: Cranial nerves II through XII grossly intact. Normal speech, gait not observed. PSYCH: Normal mood, normal affect. SKIN: Warm, dry, normal turgor, no rashes or lesions noted Laboratory Results - last 24 hr 08/24/16 05:35 WBC 14.7 H RBC 3.99 L Hgb 11.8 Hct 34.5 L MCV 86.3 MCHC 34.2 RDW 13.7 Plt Count 205 D MPV 8.5 Neutrophils % 80.2 Lymphocytes % 9.5 Monocytes % 9.9 Eosinophils % 0.2 Basophils % 0.2 Active Medications Generic Name Dose Route Start Last Admin Trade Name Freq PRN Reason Stop Dose Admin Acetaminophen 650 mg 08/21/16 16:47 08/22/16 17:26 Tylenol - PO 650 mg Q4H PRN Administration FEVER OR PAIN Docusate Sodium 100 mg 08/24/16 10:00 08/24/16 11:09 Colace - PO 100 mg DAILY ADRIAN Administration Enoxaparin Sodium 40 mg 08/22/16 10:00 08/24/16 09:54 Lovenox - SQ 40 mg DAILY ADRIAN Administration Piperacillin Sod/Tazobactam Sod 50 mls @ 100 mls/hr 08/22/16 02:00 08/24/16 09: 54 Zosyn 3.375gm Ivpb (Pre-Docked) IVPB 100 mls/hr Q8H-IV ADRIAN Administration Protocol Sodium Chloride 1,000 mls @ 125 mls/hr 08/22/16 09:15 08/24/16 09:57 Normal Saline - IV 125 mls/hr ASDIR ADRIAN Administration Clindamycin Phosphate 50 mls @ 100 mls/hr 08/23/16 16:00 08/24/16 09:53 Cleocin 600 Mg Premix Ivpb - IVPB 100 mls/hr Q8H-IV ADRIAN Administration Oxycodone HCl 5 mg 08/22/16 09:15 08/23/16 09:58 Roxicodone - PO 5 mg Q4H PRN Administration PAIN Oxycodone HCl 10 mg 08/22/16 09:24 08/23/16 16:08 Roxicodone - PO 10 mg Q4H PRN Administration PAIN Polyethylene Glycol 17 gm 08/24/16 10:00 08/24/16 11:09 Miralax (For Daily Use) - PO 17 gm DAILY ADRIAN Administration Microbiology 08/21/16 12:57 Blood - Peripheral Venous Blood Culture - Preliminary NO GROWTH OBTAINED AFTER 72 HOURS, INCUBATION TO CONTINUE FOR 2 DAYS. 08/21/16 12:57 Blood - Peripheral Venous Blood Culture - Preliminary NO GROWTH OBTAINED AFTER 72 HOURS, INCUBATION TO CONTINUE FOR 2 DAYS. 08/21/16 15:25 Body Fluid - Other Gram Stain - Final 08/21/16 15:25 Body Fluid - Other Body Fluid Culture - Final Streptococcus Pyogenes Grp A 08/21/16 15:25 Body Fluid - Other Anaerobic Culture - Final NO ANAEROBES WERE ISOLATED ASSESSMENT/PLAN: 30 year old male with no known past medical history presents with right knee swelling, erythema and pain, admitted for sepsis secondary to bursitis. #sepsis secondary to right knee cellulitis/bursitis: -trend white count, monitor vitals -lactic acid; IVF -continue IV zosyn 3.375IVPB q8h (day 4) and clindamycin 600mg IVPB q8h (day 2) -wound culture +strep pyogenes -knee xray showing anterior soft tissue swelling -MRI sowing accumulation -ID consult -as per ortho; draining puss; will be taken to OR at 6pm tonight for drain placement -need daily draining /wound care FEN: Fluids: NS 125mls/hr Electrolytes: wnl Diet: regular VTE: lovenox Disposition: IV antibiotics/ drain Problem List - Problems (1) Septic infrapatellar bursitis of right knee Code(s): M71.161 - OTHER INFECTIVE BURSITIS, RIGHT KNEE B96.89 - OTH BACTERIAL AGENTS THE CAUSE OF DISEASES CLASSD ELSWHR Visit type - Emergency Visit Emergency Visit: Yes ED Registration Date: 08/21/16 Care time: The patient presented to the Emergency Department on the above date and was hospitalized for further evaluation of their emergent condition. - New Patient This patient is new to me today: No - Critical Care Critical Care patient: No
--- NOTE | 2016-08-24 14:13 | PN ---
Progress Note, Physician History of Present Illness: patient s erythema had increased now has spread to the ankle ortho reevaluated the patient plan to take to the or - Current Medication List Current Medications: Active Medications Acetaminophen (Tylenol -) 650 mg PO Q4H PRN PRN Reason: FEVER OR PAIN Last Admin: 08/22/16 17:26 Dose: 650 mg Docusate Sodium (Colace -) 100 mg PO DAILY [facility] Last Admin: 08/24/16 11:09 Dose: 100 mg Enoxaparin Sodium (Lovenox -) 40 mg SQ DAILY [facility] Last Admin: 08/24/16 09:54 Dose: 40 mg Piperacillin Sod/Tazobactam Sod (Zosyn 3.375gm Ivpb (Pre-Docked)) 50 mls @ 100 mls/hr IVPB Q8H-IV ADRIAN PRN Reason: Protocol Last Admin: 08/24/16 09:54 Dose: 100 mls/hr Sodium Chloride (Normal Saline -) 1,000 mls @ 125 mls/hr IV ASDIR [facility] Last Admin: 08/24/16 09:57 Dose: 125 mls/hr Clindamycin Phosphate (Cleocin 600 Mg Premix Ivpb -) 50 mls @ 100 mls/hr IVPB Q8H-IV ADRIAN Last Admin: 08/24/16 09:53 Dose: 100 mls/hr Oxycodone HCl (Roxicodone -) 5 mg PO Q4H PRN PRN Reason: PAIN Last Admin: 08/23/16 09:58 Dose: 5 mg Oxycodone HCl (Roxicodone -) 10 mg PO Q4H PRN PRN Reason: PAIN Last Admin: 08/23/16 16:08 Dose: 10 mg Polyethylene Glycol (Miralax (For Daily Use) -) 17 gm PO DAILY [facility] Last Admin: 08/24/16 11:09 Dose: 17 gm - Objective Vital Signs: Vital Signs Temperature 99.6 F 08/24/16 14:01 Pulse Rate 92 H 08/24/16 14:01 Respiratory Rate 19 08/24/16 14:01 Blood Pressure 109/54 08/24/16 14:01 O2 Sat by Pulse Oximetry (%) 95 08/23/16 21:00 Constitutional: Yes: Well Nourished, Mild Distress Neck: Yes: Supple Cardiovascular: Yes: Regular Rate and Rhythm Respiratory: Yes: Regular, CTA Bilaterally Gastrointestinal: Yes: Normal Bowel Sounds, Soft Musculoskeletal: Yes: Other Extremities: Yes: Erythema (extending to the ankle joint now from the knee and extending to thigh above) Integumentary: Yes: Erythema, Other Wound/Incision: Yes: Dressing Dry and Intact, Draining Neurological: Yes: Alert, Oriented Psychiatric: Yes: Alert, Oriented Labs: CBC, BMP 08/24/16 05:35 08/22/16 07:00 Assessment/Plan cx report noted i think this is a septic joint septic joint cellulitis of the rt knee fever plan continue current abx patient going to operating room resend the cultures await for repeat cultures
[2016-08-24] MEDS: oxyCODONE HCL 5 MG TABLET PO PRN (14:33)
--- NOTE | 2016-08-24 16:59 | PN ---
Teaching Attending Note Name of Resident: Jessa Guerrero ATTENDING PHYSICIAN STATEMENT I saw and evaluated the patient. I reviewed the resident's note and discussed the case with the resident. I agree with the resident's findings and plan as documented. SUBJECTIVE:unable to walk due to pain in the knee. states pain is controlled with pain medications. denies Cp, SOB,fever, chills sexually active with only. never been treated for STD in the past OBJECTIVE: Last Vital Signs Temp Pulse Resp BP Pulse Ox 99.6 F 92 H 19 109/54 95 08/24/16 14:01 08/24/16 14:01 08/24/16 14:08/24/16 14:08/23/16 21:00 General NAD Extremities erythema and warmth on medial and lateral R thigh and on fournier. area is tender. knee is wrapped in HEIKE bandage, c/d/i ASSESSMENT AND PLAN: 30yo M with no PMH presented to the ER and was admitted for further evaluation of their emergent condition 1. Sepsis due to septic R knee and surrounding cellulitis- s/p arthrocentesis with wound growin strep pyogenes. no clinical improvement and appears to have streaking at this time. plan for knee washout and drain placement tonight by ortho. Cont Abs per ID (clinda and zosyn) f/u repeat cx from tonights procedure. pain control 2. DVT ppx- lovenox
[2016-08-24] MEDS ORDERED: MIDAZOLAM HCL 2 MG/2 ML SINGLE DOSE VIAL ONE (18:12)
[2016-08-24] MEDS ORDERED: KETAMINE HCL 200 MG/20 ML VIAL ONE (18:12)
[2016-08-24] MEDS ORDERED: BUPIVACAINE HCL/PF 0.5% (5MG/ML) 10 ML VIAL ONE (18:15)
[2016-08-24] MEDS ORDERED: LIDOCAINE 1%/EPI 1:100000 (50 ML MULTI DOSE VIAL) ONE (18:19)
[2016-08-24] MEDS ORDERED: LIDOCAINE 1%/EPI 1:100000 (50 ML MULTI DOSE VIAL) PNB ONE (18:26)
[2016-08-24] MEDS ORDERED: BUPIVACAINE HCL/PF (5 MG/ML) 30 ML VIAL IJ ONE ×2 (18:26→18:45)
[2016-08-24] MEDS ORDERED: BACITRACIN 50,000 UNITS VIAL TP ONE (18:30)
[2016-08-24] MEDS: HYDROmorphone HCL CARPU-JECT 1 MG/1 ML DISP.SYRIN IVPUSH PRN ×4 (18:57→19:45)
[2016-08-24] MEDS ORDERED: HYDROmorphone HCL CARPU-JECT 2 MG/1 ML DISP.SYRIN ONE (19:00)
--- NOTE | 2016-08-24 19:04 | OP ---
Operative Note - Note: Operative Date: 08/24/16 Pre-Operative Diagnosis: right prepatellar septic bursitis Operation: right knee incision and drainage Post-Operative Diagnosis: Same as Pre-op Surgeon: Win Lowry Anesthesiologist/FARM ADVISOR: Yessy Singleotn Anesthesia: General Estimated Blood Loss (mls): 30 Operative Report Dictated: Yes
[2016-08-24] MEDS ORDERED: LACTATED RINGERS SOLUTION 1,000 ML IV SCH ×2 (19:15→19:17)
[2016-08-24] MEDS ORDERED: ACETAMINOPHEN 325 MG TABLET (FP) PO PRN (19:17)
--- NOTE | 2016-08-24 22:32 | OP ---
DATE OF ADMISSION: 08/24/2016 PREOPERATIVE DIAGNOSIS: Right prepatellar septic bursitis. POSTOPERATIVE DIAGNOSIS: Right prepatellar septic bursitis. PROCEDURE: Right knee incision and drainage. SURGEON: Win Lowry M.D. MEDICAL CODING SPECIALIST: None. ANESTHESIA TYPE: General plus local. COMPLICATIONS: None. SPECIMENS: Culture x1 POSTOPERATIVE CONDITION: Stable. INDICATION: This is a pleasant gentleman who has been admitted to the hospital and had a bedside drainage of a prepatellar septic bursitis. Despite drainage, he was having persistent symptoms and treatment options including nonoperative versus operative management were discussed. Patient elected to proceed with operative management. After discussion of the risks, which included bleeding, persistent infection, neurovascular injury, particularly to the skin nerves, spread of infection, need for further surgery including repeat debridement or expanded debridement. We reviewed medical risks such as heart attack, stroke, DVT, even . The patient voiced understanding, elected to proceed. PROCEDURE: The patient was brought to the operating room where he was placed supine on the operating room table. General anesthesia was administered. The right lower extremity was then prepped and draped in usual sterile fashion. He was already on his antibiotics, and therefore he received his scheduled doses. The usual timeout procedure was performed. At this point, the area over the previous stab wounds was anesthetized using 1% lidocaine. The incision was now expanded both proximally and distally, making total incision length of approximately 40 mm. I inspected the bursa. Initially a small amount of pus was encountered; however, upon finger dissection , a large pocket was discovered at the level of the superior pole of the patella and purulent material was expressed. This was then sent for culture. The wound was now debrided using rongeur as well as curet to debride the necrotic material. The wound was then copiously pulse irrigated. No further pockets were identified at this point. The superior margins of the wound was now approximated using simple 3-0 nylon sutures. A SARATH drain was now inserted. Then 2 sutures were placed on the inferior margin leaving an approximately 1 cm area in the middle where the drain was extending from. The sterile dressings were now placed. The patient was transferred to recovery room in stable condition. Jania THOMAS/[id number] MTDD
[2016-08-25] MEDS: oxyCODONE HCL 5 MG TABLET PO PRN ×4 (00:05→18:10)
[2016-08-25] MEDS: SODIUM CHLORIDE 1,000 ML IV SCH ×3 (02:14→22:02)
[2016-08-25] MEDS: PIPERACILLIN/TAZOB 3.375 GM 50 ML IVPB SCH ×3 (02:14→17:47)
[2016-08-25] MEDS: CLINDAMYCIN 600MG PREMIX IVPB 50 ML IVPB SCH ×3 (02:14→17:47)
[2016-08-25 08:11] LABS: CALCIUM 8.3 mg/dL (8.5-10.1); CREATININE 0.7 mg/dL (0.7-1.3)
[2016-08-25 08:17] LABS: BASOPHIL 0.3 % (0-2.0); EOSINOPHIL 0.3 % (0-4.5); MCH 29.4 pg (25.7-33.7); MCHC 34.1 g/dl (32.0-35.9); NEUTROPHILS 80.3 % (42.8-82.8); PLATELET COUNT 248 K/MM3 (134-434); RDW 13.9 % (11.9-15.9); WHITE BLOOD COUNT 15.5 K/mm3 (4.0-10.0)
[2016-08-25] MEDS: ENOXAPARIN NA (PORCINE) 40 MG/0.4 ML DISP.SYRIN SQ SCH (09:33)
[2016-08-25] MEDS: DOCUSATE SODIUM 100 MG CAPSULE (FP) PO SCH (09:34)
[2016-08-25] MEDS: POLYETHYLENE GLYCOL 3350 119 GM BTL PO SCH (09:34)
--- NOTE | 2016-08-25 11:20 | PROC ---
Procedure Note Procedure: Anesthesia Post op Pt seen and examined S;alert and awake O: Vital Signs Temperature 99.4 F 08/25/16 06:00 Pulse Rate 88 08/25/16 06:00 Respiratory Rate 18 08/25/16 06:00 Blood Pressure 90/63 08/25/16 06:00 O2 Sat by Pulse Oximetry (%) 96 08/24/16 21:00 CBC, BMP 08/25/16 06:30 08/25/16 06:30 A/P: Current Active Problems Cellulitis (Acute) Septic infrapatellar bursitis of right knee (Acute) s/p I& D knee Doing well post op Continue current care Fermin Yen MD
--- NOTE | 2016-08-25 13:20 | PN ---
Teaching Attending Note Name of Resident: Jessa Guerrero ATTENDING PHYSICIAN STATEMENT I saw and evaluated the patient. I reviewed the resident's note and discussed the case with the resident. I agree with the resident's findings and plan as documented. SUBJECTIVE:states pain has improved, continues to have swelling around the knee but states less tender than yesterday. denies CP, SOB,fever, chills, N/V/C/D OBJECTIVE: Last Vital Signs Temp Pulse Resp BP Pulse Ox 99.4 F 88 18 90/63 96 08/25/16 06:00 08/25/16 06:00 08/25/16 06:00 08/25/16 06:00 08/24/16 21:00 General NAD Extremities erythema and warmth on medial and lateral R thigh and on fournier appears to be extending past marking. knee is wrapped in HEIKE bandage, c/d/i drain present with serosangeous drainage ASSESSMENT AND PLAN: 30yo M with no PMH presented to the ER and was admitted for further evaluation of their emergent condition 1. Sepsis due to septic R knee and surrounding cellulitis- s/p arthrocentesis with repeat I&D done in the OR last night. awaiting repeat Cx. concern as erythema seems to be extending today however states pain has improved. will await on repeat cx. on Clinda/Zosyn. abx per ID. ortho on board. pain control 2. DVT ppx- lovenox
--- NOTE | 2016-08-25 16:03 | PN ---
Progress Note, Physician History of Present Illness: patient feeling better post surgery of the knee joint findings noted and discussed drainage in place - Current Medication List Current Medications: Active Medications Acetaminophen (Tylenol -) 650 mg PO Q4H PRN PRN Reason: FEVER OR PAIN Docusate Sodium (Colace -) 100 mg PO DAILY [facility] Last Admin: 08/25/16 09:34 Dose: 100 mg Enoxaparin Sodium (Lovenox -) 40 mg SQ DAILY [facility] Last Admin: 08/25/16 09:33 Dose: 40 mg Hydromorphone HCl (Dilaudid Injection -) 0.5 mg IVPUSH [id number] PRN PRN Reason: PAIN Stop: 08/27/16 19:18 Clindamycin Phosphate (Cleocin 600 Mg Premix Ivpb -) 50 mls @ 100 mls/hr IVPB Q8H-IV [facility] Last Admin: 08/25/16 09:34 Dose: 100 mls/hr Sodium Chloride (Normal Saline -) 1,000 mls @ 125 mls/hr IV ASDIR [facility] Last Admin: 08/25/16 12:08 Dose: 125 mls/hr Piperacillin Sod/Tazobactam Sod (Zosyn 3.375gm Ivpb (Pre-Docked)) 50 mls @ 100 mls/hr IVPB Q8H-IV [facility] PRN Reason: Protocol Last Admin: 08/25/16 09:34 Dose: 100 mls/hr Oxycodone HCl (Roxicodone -) 5 mg PO Q4H PRN PRN Reason: PAIN Last Admin: 08/25/16 11:09 Dose: 5 mg Oxycodone HCl (Roxicodone -) 10 mg PO Q4H PRN PRN Reason: PAIN Last Admin: 08/25/16 04:13 Dose: 10 mg Polyethylene Glycol (Miralax (For Daily Use) -) 17 gm PO DAILY [facility] Last Admin: 08/25/16 09:34 Dose: 17 gm - Objective Vital Signs: Vital Signs Temperature 99.5 F 08/25/16 14:29 Pulse Rate 96 H 08/25/16 14:29 Respiratory Rate 18 08/25/16 14:29 Blood Pressure 105/66 08/25/16 14:29 O2 Sat by Pulse Oximetry (%) 96 08/24/16 21:00 Constitutional: Yes: No Distress, Calm Cardiovascular: Yes: Regular Rate and Rhythm Respiratory: Yes: Regular, CTA Bilaterally Gastrointestinal: Yes: Normal Bowel Sounds, Soft Musculoskeletal: Yes: Other Extremities: Yes: Other Wound/Incision: Yes: Dressing Dry and Intact Neurological: Yes: Alert, Oriented Psychiatric: Yes: Alert, Oriented Labs: CBC, BMP 08/25/16 06:30 08/25/16 06:30 Assessment/Plan cx report noted i think this is a septic joint septic joint cellulitis of the rt knee fever plan continue current abx wbc still going high will await cx reports if wbc goes high then might have to reconsider washout
--- NOTE | 2016-08-25 16:03 | PN ---
Physical Exam: SUBJECTIVE: Patient seen and examined no new complaints , comfortable. Afebrile. OBJECTIVE: Vital Signs Period Temp Pulse Resp BP Sys/Forman Pulse Ox Last 24 Hr 98.9 F-100.3 F 85-98 16-20 90-140/56-83 95-97 GENERAL: The patient is awake, alert, and fully oriented, in no acute distress. HEAD: Normal with no signs of trauma. EYES: PERRL, extraocular movements intact, sclera anicteric, conjunctiva clear. No ptosis. ENT: Ears normal, nares patent, oropharynx clear without exudates, moist mucous membranes. NECK: Trachea midline, full range of motion, supple. LUNGS: Breath sounds equal, clear to auscultation bilaterally, no wheezes, no crackles, no accessory muscle use. HEART: Regular rate and rhythm, S1, S2 without murmur, rub or gallop. ABDOMEN: Soft, nontender, nondistended, normoactive bowel sounds, no guarding, no rebound, no hepatosplenomegaly, no masses. EXTREMITIES: 2+ pulses, warm, well-perfused, no edema. Right knee bursitis, with surrounding erythema extending proximally up thigh and distally down to ankle; this look s unchanged from yesterday. still warm; drain serosangiunous fluid NEUROLOGICAL: Cranial nerves II through XII grossly intact. Normal speech, gait not observed. PSYCH: Normal mood, normal affect. SKIN: Warm, dry, normal turgor, no rashes or lesions noted Laboratory Results - last 24 hr 08/25/16 08/25/16 06:30 06:30 WBC 15.5 H RBC 3.97 L Hgb 11.6 L Hct 34.1 L MCV 86.0 MCHC 34.1 RDW 13.9 Plt Count 248 D MPV 8.0 Neutrophils % 80.3 Lymphocytes % 10.2 Monocytes % 8.9 Eosinophils % 0.3 Basophils % 0.3 Sodium 138 Potassium 4.1 Chloride 102 Carbon Dioxide 26 Anion Gap 10 BUN 11 D Creatinine 0.7 Random Glucose 90 Calcium 8.3 L Active Medications Generic Name Dose Route Start Last Admin Trade Name Freq PRN Reason Stop Dose Admin Acetaminophen 650 mg 08/24/16 19:17 Tylenol - PO Q4H PRN FEVER OR PAIN Docusate Sodium 100 mg 08/25/16 10:00 08/25/16 09:34 Colace - PO 100 mg DAILY [facility] Administration Enoxaparin Sodium 40 mg 08/25/16 10:00 08/25/16 09:33 Lovenox - SQ 40 mg DAILY [facility] Administration Hydromorphone HCl 0.5 mg 08/24/16 19:17 Dilaudid Injection - IVPUSH 08/27/16 19:18 [id number] PRN PAIN Clindamycin Phosphate 50 mls @ 100 mls/hr 08/25/16 02:00 08/25/16 09:34 Cleocin 600 Mg Premix Ivpb - IVPB 100 mls/hr Q8H-IV [facility] Administration Sodium Chloride 1,000 mls @ 125 mls/hr 08/24/16 19:17 08/25/16 12:08 Normal Saline - IV 125 mls/hr ASDIR [facility] Administration Piperacillin Sod/Tazobactam Sod 50 mls @ 100 mls/hr 08/25/16 02:00 08/25/16 09: 34 Zosyn 3.375gm Ivpb (Pre-Docked) IVPB 100 mls/hr Q8H-IV [facility] Administration Protocol Oxycodone HCl 5 mg 08/24/16 19:17 08/25/16 11:09 Roxicodone - PO 5 mg Q4H PRN Administration PAIN Oxycodone HCl 10 mg 08/24/16 19:17 08/25/16 04:13 Roxicodone - PO 10 mg Q4H PRN Administration PAIN Polyethylene Glycol 17 gm 08/25/16 10:00 08/25/16 09:34 Miralax (For Daily Use) - PO 17 gm DAILY [facility] Administration Images -knee xray showing anterior soft tissue swelling -MRI sowing accumulation ASSESSMENT/PLAN: 30 year old male with no known past medical history presents with right knee swelling, erythema and pain, admitted for sepsis secondary to bursitis. #sepsis secondary to right knee cellulitis/bursitis: POD 1 I&D -white count trending down , monitor vitals -lactic acid wnl; IVF -continue IV zosyn 3.375IVPB q8h (day 4) and clindamycin 600mg IVPB q8h (day 2) -wound culture +strep pyogenes -repeat wound culture is still pending -ID : cont antibiotics -ortho; cont drain - start physical therapy as per ortho : oob to chair; FEN: Fluids: NS 125mls/hr Electrolytes: wnl Diet: regular VTE: lovenox Disposition: IV antibiotics/ drain Problem List - Problems (1) Septic infrapatellar bursitis of right knee Code(s): M71.161 - OTHER INFECTIVE BURSITIS, RIGHT KNEE B96.89 - OTH BACTERIAL AGENTS THE CAUSE OF DISEASES CLASSD [id number] Visit type - Emergency Visit Emergency Visit: Yes ED Registration Date: 08/21/16 Care time: The patient presented to the Emergency Department on the above date and was hospitalized for further evaluation of their emergent condition. - New Patient This patient is new to me today: No - Critical Care Critical Care patient: No
[2016-08-26] MEDS: CLINDAMYCIN 600MG PREMIX IVPB 50 ML IVPB SCH ×3 (03:00→17:40)
[2016-08-26] MEDS: PIPERACILLIN/TAZOB 3.375 GM 50 ML IVPB SCH ×3 (03:17→18:44)
[2016-08-26 07:41] LABS: MCH 29.5 pg (25.7-33.7); MCHC 33.9 g/dl (32.0-35.9); MEAN PLT VOLUME 7.5 fl (7.5-11.1); PLATELET COUNT 262 K/MM3 (134-434); RDW 14.2 % (11.9-15.9); WHITE BLOOD COUNT 16.2 K/mm3 (4.0-10.0)
[2016-08-26 08:45] LABS: CALCIUM 8.2 mg/dL (8.5-10.1); CREATININE 0.7 mg/dL (0.7-1.3)
[2016-08-26] MEDS ORDERED: PT OWN MED DRAWER 7, Y5N ONE (09:29)
[2016-08-26] MEDS: POLYETHYLENE GLYCOL 3350 119 GM BTL PO SCH (09:57)
[2016-08-26] MEDS: DOCUSATE SODIUM 100 MG CAPSULE (FP) PO SCH (09:57)
[2016-08-26] MEDS: ENOXAPARIN NA (PORCINE) 40 MG/0.4 ML DISP.SYRIN SQ SCH (09:57)
[2016-08-26 10:28] LABS: METAMYELOCYTE 3 % (0-2)
[2016-08-26 10:29] LABS: PLATELET ESTIMATE ADEQUATE (NORMAL)
[2016-08-26] MEDS: SODIUM CHLORIDE 1,000 ML IV SCH (12:58)
--- NOTE | 2016-08-26 13:59 | PN ---
Physical Exam: SUBJECTIVE: Patient seen and examined less pain, afebrile,. Off NC , o2 sating 98%. normotensive. Jesse SOTO, fever, cp , sob. Slight increase on wbc this am 15- >16. OBJECTIVE: Vital Signs Period Temp Pulse Resp BP Sys/Forman Pulse Ox Last 24 Hr 98.3 F-99.5 F 76-102 18-18 105-118/63-76 GENERAL: The patient is awake, alert, and fully oriented, in no acute distress. HEAD: Normal with no signs of trauma. EYES: PERRL, extraocular movements intact, sclera anicteric, conjunctiva clear. No ptosis. ENT: Ears normal, nares patent, oropharynx clear without exudates, moist mucous membranes. NECK: Trachea midline, full range of motion, supple. LUNGS: Breath sounds equal, clear to auscultation bilaterally, no wheezes, no crackles, no accessory muscle use. HEART: Regular rate and rhythm, S1, S2 without murmur, rub or gallop. ABDOMEN: Soft, nontender, nondistended, normoactive bowel sounds, no guarding, no rebound, no hepatosplenomegaly, no masses. EXTREMITIES: 2+ pulses, warm, well-perfused, no edema. Right LE ; less erythema of anterior thigh; same amt of erythema of lower leg. drain small amt serosangious fluid NEUROLOGICAL: Cranial nerves II through XII grossly intact. Normal speech, gait not observed. PSYCH: Normal mood, normal affect. SKIN: Warm, dry, normal turgor, no rashes or lesions noted Laboratory Results - last 24 hr 08/26/16 08/26/16 06:30 06:30 WBC 16.2 H RBC 4.07 Hgb 12.0 Hct 35.4 MCV 87.0 MCHC 33.9 RDW 14.2 Plt Count 262 MPV 7.5 Neutrophils % 73.0 Lymphocytes % 9.0 Monocytes % 7.0 Eosinophils % 1.0 D Basophils % 1.0 D Band Neutrophils 1.0 D Metamyelocytes 3 H Differential Comment Manual diff done Reactive Lymphocytes 5 Platelet Estimate Adequate Sodium 141 Potassium 4.1 Chloride 105 Carbon Dioxide 24 Anion Gap 12 BUN 10 Creatinine 0.7 Random Glucose 91 Calcium 8.2 L Active Medications Generic Name Dose Route Start Last Admin Trade Name Freq PRN Reason Stop Dose Admin Acetaminophen 650 mg 08/24/16 19:17 08/25/16 22:06 Tylenol - PO 650 mg Q4H PRN Administration FEVER OR PAIN Docusate Sodium 100 mg 08/25/16 10:00 08/26/16 09:57 Colace - PO 100 mg DAILY [facility] Administration Enoxaparin Sodium 40 mg 08/25/16 10:00 08/26/16 09:57 Lovenox - SQ 40 mg DAILY [facility] Administration Hydromorphone HCl 0.5 mg 08/24/16 19:17 Dilaudid Injection - IVPUSH 08/27/16 19:18 [id number] PRN PAIN Clindamycin Phosphate 50 mls @ 100 mls/hr 08/25/16 02:00 08/26/16 09:57 Cleocin 600 Mg Premix Ivpb - IVPB 100 mls/hr Q8H-IV [facility] Administration Sodium Chloride 1,000 mls @ 125 mls/hr 08/24/16 19:17 08/26/16 12:58 Normal Saline - IV 125 mls/hr ASDIR [facility] Administration Piperacillin Sod/Tazobactam Sod 50 mls @ 100 mls/hr 08/25/16 02:00 08/26/16 09: 58 Zosyn 3.375gm Ivpb (Pre-Docked) IVPB 100 mls/hr Q8H-IV [facility] Administration Protocol Oxycodone HCl 5 mg 08/24/16 19:17 08/25/16 18:10 Roxicodone - PO 5 mg Q4H PRN Administration PAIN Oxycodone HCl 10 mg 08/24/16 19:17 08/25/16 04:13 Roxicodone - PO 10 mg Q4H PRN Administration PAIN Polyethylene Glycol 17 gm 08/25/16 10:00 08/26/16 09:57 Miralax (For Daily Use) - PO 17 gm DAILY [facility] Administration Images -knee xray showing anterior soft tissue swelling -MRI sowing accumulation ASSESSMENT/PLAN: 30 year old male with no known past medical history presents with right knee swelling, erythema and pain, admitted for sepsis secondary to bursitis. #sepsis secondary to right knee cellulitis/bursitis: POD 2 I&D of right knee -white count slight up trend from 15.5 to 16.5 this am; afebrile, monitor vitals -lactic acid wnl; IVF -continue IV zosyn 3.375IVPB q8h (day 5) and clindamycin 600mg IVPB q8h (day 3) -wound culture wound culture +strep pyogenes -repeat wound culture is negative; anaerobes still pending -ID : cont antibiotics -ortho; cont drain -cleared by ortho to start PT - call out to ortho to see if patient need daily washing of wound site; FEN: Fluids: NS 125mls/hr Electrolytes: wnl Diet: regular VTE: lovenox Disposition: IV antibiotics/ drain Problem List - Problems (1) Septic infrapatellar bursitis of right knee Code(s): M71.161 - OTHER INFECTIVE BURSITIS, RIGHT KNEE B96.89 - OTH BACTERIAL AGENTS THE CAUSE OF DISEASES CLASSD [id number] Visit type - Emergency Visit Emergency Visit: Yes ED Registration Date: 08/21/16 Care time: The patient presented to the Emergency Department on the above date and was hospitalized for further evaluation of their emergent condition. - New Patient This patient is new to me today: No - Critical Care Critical Care patient: No
--- NOTE | 2016-08-26 14:06 | PN ---
Teaching Attending Note Name of Resident: Jessa Guerrero ATTENDING PHYSICIAN STATEMENT I saw and evaluated the patient. I reviewed the resident's note and discussed the case with the resident. I agree with the resident's findings and plan as documented. SUBJECTIVE:states pain has significantly improved. leg no longer feels warm. denies CP, SOB,fever, chills, N/V/C/D OBJECTIVE: Last Vital Signs Temp Pulse Resp BP Pulse Ox 98.3 F 82 18 118/76 96 08/26/16 06:00 08/26/16 06:00 08/26/16 06:00 08/26/16 06:00 08/24/16 21:00 General NAD Extremities erythema superior and inferior to knee on medial and lateral thigh and lateral leg. area however is not warm or tender. knee is wrapped in HEIKE bandage, c/d/i drain present with serosangeous drainage ASSESSMENT AND PLAN: 30yo M with no PMH presented to the ER and was admitted for further evaluation of their emergent condition 1. Sepsis due to septic R knee and surrounding cellulitis- s/p arthrocentesis with repeat I&D. repeat cx is negative. concern with increasing leukocytosis however clinically looks better. will call for ortho to come and evaluate if planned for repeated procedure and drain management. knee not evaluated as dressing has not been changed from surgery. on Clinda/Zosyn. abx per ID. ortho on board. pain control 2. DVT ppx- lovenox
--- NOTE | 2016-08-26 16:10 | PN ---
Progress Note, Physician History of Present Illness: patient feeling better still erythema present drainage tube draining - Current Medication List Current Medications: Active Medications Acetaminophen (Tylenol -) 650 mg PO Q4H PRN PRN Reason: FEVER OR PAIN Last Admin: 08/25/16 22:06 Dose: 650 mg Docusate Sodium (Colace -) 100 mg PO DAILY [facility] Last Admin: 08/26/16 09:57 Dose: 100 mg Enoxaparin Sodium (Lovenox -) 40 mg SQ DAILY [facility] Last Admin: 08/26/16 09:57 Dose: 40 mg Hydromorphone HCl (Dilaudid Injection -) 0.5 mg IVPUSH [id number] PRN PRN Reason: PAIN Stop: 08/27/16 19:18 Clindamycin Phosphate (Cleocin 600 Mg Premix Ivpb -) 50 mls @ 100 mls/hr IVPB Q8H-IV [facility] Last Admin: 08/26/16 09:57 Dose: 100 mls/hr Piperacillin Sod/Tazobactam Sod (Zosyn 3.375gm Ivpb (Pre-Docked)) 50 mls @ 100 mls/hr IVPB Q8H-IV [facility] PRN Reason: Protocol Last Admin: 08/26/16 09:58 Dose: 100 mls/hr Oxycodone HCl (Roxicodone -) 5 mg PO Q4H PRN PRN Reason: PAIN Last Admin: 08/25/16 18:10 Dose: 5 mg Oxycodone HCl (Roxicodone -) 10 mg PO Q4H PRN PRN Reason: PAIN Last Admin: 08/25/16 04:13 Dose: 10 mg Polyethylene Glycol (Miralax (For Daily Use) -) 17 gm PO DAILY [facility] Last Admin: 08/26/16 09:57 Dose: 17 gm - Objective Vital Signs: Vital Signs Temperature 98.9 F 08/26/16 14:43 Pulse Rate 86 08/26/16 14:43 Respiratory Rate 18 08/26/16 14:43 Blood Pressure 122/73 08/26/16 14:43 O2 Sat by Pulse Oximetry (%) 98 08/26/16 15:14 Constitutional: Yes: No Distress, Calm Cardiovascular: Yes: Regular Rate and Rhythm Respiratory: Yes: Regular, CTA Bilaterally Gastrointestinal: Yes: Normal Bowel Sounds, Soft Musculoskeletal: Yes: Other Extremities: Yes: Other (drain in left knee) Integumentary: Yes: Erythema, Other Wound/Incision: Yes: Dressing Dry and Intact, Draining Neurological: Yes: Alert, Oriented Psychiatric: Yes: Alert, Oriented Labs: CBC, BMP 08/26/16 06:30 08/26/16 06:30 Assessment/Plan cx report noted i think this is a septic joint septic joint cellulitis of the rt knee fever plan continue current abx wbc still going high repeat cx negative but wbc increasing if wbc does not decreasee patient will need another washout of the joint
[2016-08-27] MEDS: CLINDAMYCIN 600MG PREMIX IVPB 50 ML IVPB SCH ×4 (02:00→23:12)
[2016-08-27] MEDS: PIPERACILLIN/TAZOB 3.375 GM 50 ML IVPB SCH ×4 (02:01→23:13)
[2016-08-27 08:00] LABS: MCH 28.9 pg (25.7-33.7); MCHC 33.4 g/dl (32.0-35.9); MEAN CELL VOLUME 86.5 fl (80-96); MEAN PLT VOLUME 7.4 fl (7.5-11.1); PLATELET COUNT 369 K/MM3 (134-434); RDW 14.4 % (11.9-15.9); WHITE BLOOD COUNT 16.7 K/mm3 (4.0-10.0)
[2016-08-27 08:26] LABS: CALCIUM 9.2 mg/dL (8.5-10.1); COCKROFT - GAULT 157.34; CREATININE 0.8 mg/dL (0.7-1.3)
[2016-08-27 09:59] LABS: PLATELET ESTIMATE ADEQUATE (NORMAL)
--- NOTE | 2016-08-27 11:13 | PN ---
Progress Note (short form) - Note Progress Note: Patient states his pain is improving. AF VSS RLE mild soft tissue swelling about the incision diffuse but less prominent erythema focal warmth no effusion NVID WBC 16 a/p: septic prepatellar bursitis I reviewed today's findings with the patient. -overall clinical picture is improved but still not normal -can consider repeat debridement to ensure no further necrotic material or purulent material -will make pt NPO and book for OR -will discuss further this afternoon
[2016-08-27] MEDS: DOCUSATE SODIUM 100 MG CAPSULE (FP) PO SCH (12:33)
[2016-08-27] MEDS: ENOXAPARIN NA (PORCINE) 40 MG/0.4 ML DISP.SYRIN SQ SCH (12:33)
[2016-08-27] MEDS: POLYETHYLENE GLYCOL 3350 119 GM BTL PO SCH (12:34)
--- NOTE | 2016-08-27 15:12 | PN ---
Teaching Attending Note Name of Resident: Jessa Guerrero ATTENDING PHYSICIAN STATEMENT I saw and evaluated the patient. I reviewed the resident's note and discussed the case with the resident. I agree with the resident's findings and plan as documented. SUBJECTIVE:states pain continues to improve. pain only in patella region of the knee, denies CP, SOB, fever, chills, OBJECTIVE: Last Vital Signs Temp Pulse Resp BP Pulse Ox 98.8 F 85 18 123/77 95 08/27/16 08:59 08/27/16 08:59 08/27/16 08:59 08/27/16 08:59 08/26/16 21:00 General NAD CV S1 S2 RRR no murmur Extremities erythema improved from yesterday, now retracted no tender. minimal swelling. stiches noted on patella in place iwth SARATH drain with serosangeous drainage ASSESSMENT AND PLAN: 30yo M with no PMH presented to the ER and was admitted for further evaluation of their emergent condition 1. Sepsis due to septic R knee and surrounding cellulitis- s/p arthrocentesis with repeat I&D. repeat cx is negative. persistent leukocytosis agree with plan for washout of the knee. BCx negative. will check echo to ensure no endocarditis that can also be contributing to leukocytosis but low risk considering no hx of IVDA or no clinical signs suggestive. will obtain echo to r /o. on Clinda/Zosyn. abx per ID. ortho on board. pain control 2. DVT ppx- lovenox
--- NOTE | 2016-08-27 15:21 | PN ---
Physical Exam: SUBJECTIVE: Patient seen and examined afebrile, less pain,. Wound dressing changed, clean. 5ml of fluid on drain for 24hrs. OBJECTIVE: Vital Signs Period Temp Pulse Resp BP Sys/Forman Pulse Ox Last 24 Hr 98.4 F-98.8 F 76-91 18-18 118-124/71-77 95 GENERAL: The patient is awake, alert, and fully oriented, in no acute distress. HEAD: Normal with no signs of trauma. EYES: PERRL, extraocular movements intact, sclera anicteric, conjunctiva clear. No ptosis. ENT: Ears normal, nares patent, oropharynx clear without exudates, moist mucous membranes. NECK: Trachea midline, full range of motion, supple. LUNGS: Breath sounds equal, clear to auscultation bilaterally, no wheezes, no crackles, no accessory muscle use. HEART: Regular rate and rhythm, S1, S2 without murmur, rub or gallop. ABDOMEN: Soft, nontender, nondistended, normoactive bowel sounds, no guarding, no rebound, no hepatosplenomegaly, no masses. EXTREMITIES: 2+ pulses, warm, well-perfused, no edema. Right knee incision with drain, serosanginous fluid, no puss or fluctuance; erythema has decreased NEUROLOGICAL: Cranial nerves II through XII grossly intact. Normal speech, gait not observed. PSYCH: Normal mood, normal affect. SKIN: Warm, dry, normal turgor, no rashes or lesions noted Laboratory Results - last 24 hr 08/27/16 08/27/16 06:46 06:46 WBC 16.7 H RBC 4.37 Hgb 12.6 Hct 37.8 MCV 86.5 MCHC 33.4 RDW 14.4 Plt Count 369 D MPV 7.4 L Neutrophils % 77.0 Lymphocytes % 17.0 D Monocytes % 5.0 Differential Comment Manual diff done Reactive Lymphocytes 1 D Platelet Estimate Adequate Sodium 137 Potassium 4.2 Chloride 102 Carbon Dioxide 25 Anion Gap 10 BUN 14 D Creatinine 0.8 Random Glucose 90 Calcium 9.2 Active Medications Generic Name Dose Route Start Last Admin Trade Name Freq PRN Reason Stop Dose Admin Acetaminophen 650 mg 08/24/16 19:17 08/25/16 22:06 Tylenol - PO 650 mg Q4H PRN Administration FEVER OR PAIN Docusate Sodium 100 mg 08/25/16 10:00 08/27/16 12:33 Colace - PO Not Given DAILY [facility] Enoxaparin Sodium 40 mg 08/25/16 10:00 08/27/16 12:33 Lovenox - SQ Not Given DAILY [facility] Hydromorphone HCl 0.5 mg 08/24/16 19:17 Dilaudid Injection - IVPUSH 08/27/16 19:18 [id number] PRN PAIN Clindamycin Phosphate 50 mls @ 100 mls/hr 08/25/16 02:00 08/27/16 09:30 Cleocin 600 Mg Premix Ivpb - IVPB 100 mls/hr Q8H-IV [facility] Administration Piperacillin Sod/Tazobactam Sod 50 mls @ 100 mls/hr 08/25/16 02:00 08/27/16 09: 30 Zosyn 3.375gm Ivpb (Pre-Docked) IVPB 100 mls/hr Q8H-IV [facility] Administration Protocol Oxycodone HCl 5 mg 08/24/16 19:17 08/25/16 18:10 Roxicodone - PO 5 mg Q4H PRN Administration PAIN Oxycodone HCl 10 mg 08/24/16 19:17 08/25/16 04:13 Roxicodone - PO 10 mg Q4H PRN Administration PAIN Polyethylene Glycol 17 gm 08/25/16 10:00 08/27/16 12:34 Miralax (For Daily Use) - PO Not Given DAILY [facility] Images -knee xray showing anterior soft tissue swelling -MRI sowing accumulation ASSESSMENT/PLAN: 30 year old male with no known past medical history presents with right knee swelling, erythema and pain, admitted for sepsis secondary to bursitis. #sepsis secondary to right knee cellulitis/bursitis: wash tonight; going to OR -I&D of right knee (08/25) -white count slight up trend from 16.5 to 16.7 this am; -continue IV zosyn 3.375IVPB q8h (day 6) and clindamycin 600mg IVPB q8h (day 4) - wound culture +strep pyogenes on 08/21 -blood culutres on 08/21 negative -*repeat wound culture is negative; anaerobes negative -ID : cont antibiotics -ortho; cont drain/wash prn -echo r/o other worhg4h on infection; r/o endocarditis FEN: Fluids: NS 125mls/hr Electrolytes: wnl Diet: regular VTE: lovenox Disposition: IV antibiotics/ drain Problem List - Problems (1) Septic infrapatellar bursitis of right knee Code(s): M71.161 - OTHER INFECTIVE BURSITIS, RIGHT KNEE B96.89 - OTH BACTERIAL AGENTS THE CAUSE OF DISEASES CLASSD [id number] Visit type - Emergency Visit Emergency Visit: Yes ED Registration Date: 08/21/16 Care time: The patient presented to the Emergency Department on the above date and was hospitalized for further evaluation of their emergent condition. - New Patient This patient is new to me today: No - Critical Care Critical Care patient: No
--- NOTE | 2016-08-27 15:24 | PN ---
Progress Note, Physician History of Present Illness: patient feeling better still erythema present drainage tube draining minima wbc again increased - Current Medication List Current Medications: Active Medications Acetaminophen (Tylenol -) 650 mg PO Q4H PRN PRN Reason: FEVER OR PAIN Last Admin: 08/25/16 22:06 Dose: 650 mg Docusate Sodium (Colace -) 100 mg PO DAILY [facility] Last Admin: 08/27/16 12:33 Dose: Not Given Enoxaparin Sodium (Lovenox -) 40 mg SQ DAILY [facility] Last Admin: 08/27/16 12:33 Dose: Not Given Hydromorphone HCl (Dilaudid Injection -) 0.5 mg IVPUSH [id number] PRN PRN Reason: PAIN Stop: 08/27/16 19:18 Clindamycin Phosphate (Cleocin 600 Mg Premix Ivpb -) 50 mls @ 100 mls/hr IVPB Q8H-IV [facility] Last Admin: 08/27/16 09:30 Dose: 100 mls/hr Piperacillin Sod/Tazobactam Sod (Zosyn 3.375gm Ivpb (Pre-Docked)) 50 mls @ 100 mls/hr IVPB Q8H-IV [facility]AN PRN Reason: Protocol Last Admin: 08/27/16 09:30 Dose: 100 mls/hr Oxycodone HCl (Roxicodone -) 5 mg PO Q4H PRN PRN Reason: PAIN Last Admin: 08/25/16 18:10 Dose: 5 mg Oxycodone HCl (Roxicodone -) 10 mg PO Q4H PRN PRN Reason: PAIN Last Admin: 08/25/16 04:13 Dose: 10 mg Polyethylene Glycol (Miralax (For Daily Use) -) 17 gm PO DAILY [facility] Last Admin: 08/27/16 12:34 Dose: Not Given - Objective Vital Signs: Vital Signs Temperature 98.8 F 08/27/16 08:59 Pulse Rate 85 08/27/16 08:59 Respiratory Rate 18 08/27/16 08:59 Blood Pressure 123/77 08/27/16 08:59 O2 Sat by Pulse Oximetry (%) 95 08/26/16 21:00 Constitutional: Yes: No Distress, Calm Cardiovascular: Yes: Regular Rate and Rhythm Respiratory: Yes: Regular, CTA Bilaterally Gastrointestinal: Yes: Normal Bowel Sounds, Soft Musculoskeletal: Yes: Joint Swelling, Other Extremities: Yes: Erythema, Other Edema: RLE: 1+ Integumentary: Yes: Erythema, Other Wound/Incision: Yes: Dressing Dry and Intact, Other (drainage tube in place) Neurological: Yes: Alert, Oriented Psychiatric: Yes: Alert, Oriented Labs: CBC, BMP 08/27/16 06:46 08/27/16 06:46 Assessment/Plan cx report noted i think this is a septic joint septic joint cellulitis of the rt knee fever plan continue current abx wbc still going high repeat cx negative but wbc increasing patient for wash out await echo report will have to continue monitoring
[2016-08-27] MEDS ORDERED: PROPOFOL 20 ML ONE ×4 (17:29→17:57)
[2016-08-27] MEDS ORDERED: LIDOCAINE HCL 1%, 10 MG/ML (20ML VIAL) IJ ONE (17:41)
[2016-08-27] MEDS ORDERED: BUPIVACAINE HCL/PF 0.5% (5MG/ML) 10 ML VIAL IJ ONE (17:41)
[2016-08-27] MEDS ORDERED: BACITRACIN 50,000 UNITS VIAL TP ONE (17:41)
[2016-08-27] MEDS ORDERED: VANCOMYCIN 1,000 MG VIAL (RESTRICTED TO ID ONLY) ONE ×2 (17:44→17:56)
--- NOTE | 2016-08-27 18:27 | OP ---
Operative Note - Note: Operative Date: 08/27/16 Pre-Operative Diagnosis: right knee prepatellar septic bursitis Operation: right knee incision and drainage Post-Operative Diagnosis: Same as Pre-op Surgeon: Win Lowry Anesthesiologist/DINING ROOM COORDINATOR: Gracia Baca Anesthesia: Local, MAC Estimated Blood Loss (mls): 50 Operative Report Dictated: Yes
[2016-08-27] MEDS ORDERED: LACTATED RINGERS SOLUTION 1,000 ML IV SCH ×2 (18:30→18:44)
[2016-08-27] MEDS ORDERED: ACETAMINOPHEN 325 MG TABLET (FP) PO PRN (18:44)
[2016-08-27] MEDS ORDERED: oxyCODONE HCL 5 MG TABLET PO PRN ×2 (18:44)
[2016-08-27] MEDS ORDERED: HYDROmorphone HCL CARPU-JECT 2 MG/1 ML DISP.SYRIN ONE (18:56)
[2016-08-27] MEDS: HYDROmorphone HCL CARPU-JECT 1 MG/1 ML DISP.SYRIN IVPUSH PRN ×4 (19:00→19:35)
[2016-08-27] MEDS ORDERED: PIPERACILLIN/TAZOBACTAM 3.375 GM VIAL IVPB ONE (19:30)
[2016-08-27] MEDS ORDERED: CLINDAMYCIN 600 MG PREMIX BAG IVPB ONE (19:50)
[2016-08-28] MEDS: PIPERACILLIN/TAZOB 3.375 GM 50 ML IVPB SCH ×3 (01:36→17:10)
[2016-08-28] MEDS: CLINDAMYCIN 600MG PREMIX IVPB 50 ML IVPB SCH ×3 (01:36→17:58)
--- NOTE | 2016-08-28 07:41 | OP ---
DATE OF OPERATION: 08/27/2016 PREOPERATIVE DIAGNOSIS: Right knee prepatellar septic bursitis. POSTOPERATIVE DIAGNOSIS: Right knee prepatellar septic bursitis. PROCEDURE: Right knee repeat incision and drainage. SURGEON: Win Bowles MD ANESTHESIA TYPE: MAC and local. POSTOPERATIVE CONDITION: Stable. BLOOD LOSS: 50 mL. DRAIONS: SARATH x1. COMPLICATIONS: None. INDICATIONS: This is a pleasant gentleman who had underwent incision and drainage earlier this week for the same problem. While he did show some signs of clinical improvement, he had a persistently elevated white blood cell count as well as localized swelling and some persistent erythema and discomfort. Given these findings, treatment options including continued non-operative care with IV antibiotics versus repeat operative care with a a repeat operative drainage and washout were discussed. Operative risks were again review in detail before, principal risks being persistent or recurrence or spread of the infection. We reviewed medical risks such as heart attack, stroke, DVT, PE, and . Patient voiced understanding and elected to proceed surgically. DESCRIPTION OF PROCEDURE: The patient was brought to the operating room where sedation was administered. The right lower extremity was prepped and draped in the usual sterile fashion. No additional antibiotics were given as he was already on a dosing regimen. The usual time-out procedure was performed. At this point, the previous incision was opened by removing the sutures, and then blunt spreading. There was scant purulent drainage, but this was only within the wound itself. None was encountered upon the cavity. Encountered within the bursal cavity was a small degree of necrotic tissue. Utilizing a curette as well as a rongeur, this was debrided. Healthy bleeding tissue was seen all about the bursa at this time. Then, 1 g of vancomycin powder was inserted into the wound. The drain was then inserted. The proximal and distal portions of the wound were loosely approximated using 3-0 nylon. A compressive dressing was placed. The patient was transferred to the recovery room in stable condition. Given the noted amount of swelling present in the patients leg, a venous duplex will be ordered to ensure no evidence of DVT. WIN BOWLES M.D. PAUL/[id number]
[2016-08-28 08:35] LABS: MCH 29.2 pg (25.7-33.7); MEAN CELL VOLUME 86.1 fl (80-96); MEAN PLT VOLUME 7.1 fl (7.5-11.1); PLATELET COUNT 413 K/MM3 (134-434); RDW 14.3 % (11.9-15.9); WHITE BLOOD COUNT 14.5 K/mm3 (4.0-10.0)
[2016-08-28 09:06] LABS: CALCIUM 8.9 mg/dL (8.5-10.1); COCKROFT - GAULT 157.34; CREATININE 0.8 mg/dL (0.7-1.3)
[2016-08-28] MEDS ORDERED: PT OWN MED DRAWER 7, Y5N ONE (09:15)
[2016-08-28] MEDS: ENOXAPARIN NA (PORCINE) 40 MG/0.4 ML DISP.SYRIN SQ SCH (09:18)
[2016-08-28] MEDS: DOCUSATE SODIUM 100 MG CAPSULE (FP) PO SCH (09:18)
[2016-08-28] MEDS: POLYETHYLENE GLYCOL 3350 119 GM BTL PO SCH (09:18)
--- NOTE | 2016-08-28 10:45 | PN ---
Progress Note (short form) - Note Progress Note: Patient has mild-moderate pain post op. AF VSS RLE dressing CDI minimal drainage last night and this morning in drain calves soft nt moderate swelling of leg and ankle NVID WBC 14 a/p: septic prepatellar bursitis I reviewed today's findings with the patient. -repeat I+D showed small amount of necrotic material, no major collections -continue abx -maintain drain at this point -trend wbc
[2016-08-28 11:46] LABS: PLATELET ESTIMATE INCREASED (NORMAL)
--- NOTE | 2016-08-28 13:38 | PN ---
Progress Note, Physician History of Present Illness: patient taken for washout feels better leg showing signs of improvement - Current Medication List Current Medications: Active Medications Acetaminophen (Tylenol -) 650 mg PO Q4H PRN PRN Reason: FEVER OR PAIN Docusate Sodium (Colace -) 100 mg PO DAILY [facility] Last Admin: 08/28/16 09:18 Dose: Not Given Enoxaparin Sodium (Lovenox -) 40 mg SQ DAILY [facility] Last Admin: 08/28/16 09:18 Dose: 40 mg Hydromorphone HCl (Dilaudid Injection -) 0.5 mg IVPUSH [id number] PRN PRN Reason: PAIN Stop: 08/30/16 19:42 Last Admin: 08/27/16 19:35 Dose: 0.5 mg Clindamycin Phosphate (Cleocin 600 Mg Premix Ivpb -) 50 mls @ 100 mls/hr IVPB Q8H-IV [facility] Last Admin: 08/28/16 09:18 Dose: 100 mls/hr Lactated Ringer's (Lactated Ringers Solution) 1,000 mls @ 75 mls/hr IV ASDIR [facility] Last Admin: 08/27/16 23:11 Dose: Not Given Piperacillin Sod/Tazobactam Sod (Zosyn 3.375gm Ivpb (Pre-Docked)) 50 mls @ 100 mls/hr IVPB Q8H-IV [facility]AN PRN Reason: Protocol Last Admin: 08/28/16 09:19 Dose: 100 mls/hr Oxycodone HCl (Roxicodone -) 5 mg PO Q4H PRN PRN Reason: PAIN Oxycodone HCl (Roxicodone -) 10 mg PO Q4H PRN PRN Reason: PAIN Polyethylene Glycol (Miralax (For Daily Use) -) 17 gm PO DAILY [facility] Last Admin: 08/28/16 09:18 Dose: Not Given - Objective Vital Signs: Vital Signs Temperature 98.2 F 08/28/16 09:01 Pulse Rate 82 08/28/16 09:01 Respiratory Rate 18 08/28/16 09:01 Blood Pressure 126/75 08/28/16 09:01 O2 Sat by Pulse Oximetry (%) 96 08/28/16 09:00 Constitutional: Yes: No Distress, Calm Cardiovascular: Yes: Regular Rate and Rhythm Respiratory: Yes: Regular, CTA Bilaterally Gastrointestinal: Yes: Normal Bowel Sounds, Soft Musculoskeletal: Yes: WNL Extremities: Yes: Other Integumentary: Yes: Erythema Wound/Incision: Yes: Dressing Dry and Intact, Draining, Other (draiange tube in knee) Neurological: Yes: Alert, Oriented Psychiatric: Yes: Alert, Oriented Labs: CBC, BMP 08/28/16 07:30 08/28/16 07:30 Assessment/Plan cx report noted i think this is a septic joint septic joint cellulitis of the rt knee fever plan continue current abx wbc still on the higher side post washout will see wbc tomorrow then make a decision
--- NOTE | 2016-08-28 14:16 | PN ---
Progress Note (short form) - Note Progress Note: pain continues to improve. slightly worse on exertion only today after procedure. denies Cp, SOB,fever, chills Current Medications Generic Name Dose Route Start Last Admin Trade Name Freq PRN Reason Stop Dose Admin Acetaminophen 650 mg 08/27/16 18:44 Tylenol - PO Q4H PRN FEVER OR PAIN Docusate Sodium 100 mg 08/28/16 10:00 08/28/16 09:18 Colace - PO Not Given DAILY [facility] Enoxaparin Sodium 40 mg 08/28/16 10:00 08/28/16 09:18 Lovenox - SQ 40 mg DAILY [facility] Administration Hydromorphone HCl 0.5 mg 08/27/16 19:41 08/27/16 19:35 Dilaudid Injection - IVPUSH 08/30/16 19:42 0.5 mg [id number] PRN Administration PAIN Clindamycin Phosphate 50 mls @ 100 mls/hr 08/27/16 19:15 08/28/16 09:18 Cleocin 600 Mg Premix Ivpb - IVPB 100 mls/hr Q8H-IV [facility] Administration Lactated Ringer's 1,000 mls @ 75 mls/hr 08/27/16 18:44 08/27/16 23:11 Lactated Ringers Solution IV Not Given ASDIR [facility]AN Piperacillin Sod/Tazobactam Sod 50 mls @ 100 mls/hr 08/27/16 19:15 08/28/16 09: 19 Zosyn 3.375gm Ivpb (Pre-Docked) IVPB 100 mls/hr Q8H-IV AD[facility]AN Administration Protocol Oxycodone HCl 5 mg 08/27/16 18:44 Roxicodone - PO Q4H PRN PAIN Oxycodone HCl 10 mg 08/27/16 18:44 Roxicodone - PO Q4H PRN PAIN Polyethylene Glycol 17 gm 08/28/16 10:00 08/28/16 09:18 Miralax (For Daily Use) - PO Not Given DAILY [facility] Last Vital Signs Temp Pulse Resp BP Pulse Ox 98.2 F 82 18 126/75 96 08/28/16 09:01 08/28/16 09:01 08/28/16 09:01 08/28/16 09:01 08/28/16 09:00 General NAD CV S1 S2 RRR no murmur Extremities no erythema above and below the knee bandage. SARATH drain with serosangeous drainage CBCD WBC 14.5 K/mm3 (4.0-10.0) H 08/28/16 07:30 RBC 4.32 M/mm3 (4.00-5.60) 08/28/16 07:30 Hgb 12.6 GM/dL (11.7-16.9) 08/28/16 07:30 Hct 37.2 % (35.4-49) 08/28/16 07:30 MCV 86.1 fl (80-96) 08/28/16 07:30 MCHC 34.0 g/dl (32.0-35.9) 08/28/16 07:30 RDW 14.3 % (11.9-15.9) 08/28/16 07:30 Plt Count 413 K/MM3 (134-434) 08/28/16 07:30 MPV 7.1 fl (7.5-11.1) L 08/28/16 07:30 CMP Sodium 138 mmol/L (136-145) 08/28/16 07:30 Potassium 4.4 mmol/L (3.5-5.1) 08/28/16 07:30 Chloride 100 mmol/L (98-107) 08/28/16 07:30 Carbon Dioxide 28 mmol/L (21-32) 08/28/16 07:30 Anion Gap 10 (8-16) 08/28/16 07:30 BUN 17 mg/dL (7-18) D 08/28/16 07:30 Creatinine 0.8 mg/dL (0.7-1.3) 08/28/16 07:30 Creat Clearance w eGFR > 60 (>60) 08/21/16 12:57 Calcium 8.9 mg/dL (8.5-10.1) 08/28/16 07:30 Total Bilirubin 1.7 mg/dL (0.2-1.0) H 08/21/16 12:57 AST 16 U/L (15-37) 08/21/16 12:57 ALT 27 U/L (12-78) 08/21/16 12:57 Alkaline Phosphatase 67 U/L (45-117) 08/21/16 12:57 Total Protein 7.6 g/dl (6.4-8.2) 08/21/16 12:57 Albumin 4.3 g/dl (3.4-5.0) 08/21/16 12:57 Microbiology 08/24/16 18:38 Gram Stain - Final Knee - Right Wound Culture - Final NO AEROBIC OR ANAEROBIC GROWTH OBTAINED. 08/24/16 15:10 Gram Stain - Final Tissue-Other Tissue Culture - Final NO GROWTH OF AEROBIC ORGANISMS AFTER 48 HOURS INCUBATION Anaerobic Culture - Final NO ANAEROBES WERE ISOLATED ASSESSMENT AND PLAN: 30yo M with no PMH presented to the ER and was admitted for further evaluation of their emergent condition 1. Sepsis due to septic R knee and surrounding cellulitis- s/p arthrocentesis with repeat I&D. washing done yesterday. leukocytosis slowly trending down. will cont to monitor if repeat washing required. echo negative for vegetations or alternate source of infection, doppler negative for dvt. on Clinda/Zosyn. abx per ID. ortho on board. pain control 2. DVT ppx- lovenox Visit type - Emergency Visit Emergency Visit: Yes ED Registration Date: 08/21/16 Care time: The patient presented to the Emergency Department on the above date and was hospitalized for further evaluation of their emergent condition. - New Patient This patient is new to me today: No - Critical Care Critical Care patient: No - Discharge Referral Referred to [facility] Med P.C.: No
[2016-08-29] MEDS: PIPERACILLIN/TAZOB 3.375 GM 50 ML IVPB SCH ×3 (01:15→18:44)
[2016-08-29] MEDS: CLINDAMYCIN 600MG PREMIX IVPB 50 ML IVPB SCH ×3 (01:59→18:14)
[2016-08-29 08:11] LABS: MCH 29.3 pg (25.7-33.7); MCHC 33.8 g/dl (32.0-35.9); MEAN CELL VOLUME 86.6 fl (80-96); MEAN PLT VOLUME 7.2 fl (7.5-11.1); PLATELET COUNT 406 K/MM3 (134-434); RDW 14.1 % (11.9-15.9); WHITE BLOOD COUNT 11.9 K/mm3 (4.0-10.0)
[2016-08-29] MEDS: DOCUSATE SODIUM 100 MG CAPSULE (FP) PO SCH (10:16)
[2016-08-29] MEDS: POLYETHYLENE GLYCOL 3350 119 GM BTL PO SCH (10:16)
[2016-08-29] MEDS: ENOXAPARIN NA (PORCINE) 40 MG/0.4 ML DISP.SYRIN SQ SCH (10:16)
--- NOTE | 2016-08-29 11:45 | PN ---
Physical Exam: SUBJECTIVE: Patient seen and examined less, pain, just at incision site, OBJECTIVE: Vital Signs Period Temp Pulse Resp BP Sys/Forman Pulse Ox Last 24 Hr 98.2 F-99.1 F 71-87 18-20 109-125/60-91 GENERAL: The patient is awake, alert, and fully oriented, in no acute distress. HEAD: Normal with no signs of trauma. EYES: PERRL, extraocular movements intact, sclera anicteric, conjunctiva clear. No ptosis. ENT: Ears normal, nares patent, oropharynx clear without exudates, moist mucous membranes. NECK: Trachea midline, full range of motion, supple. LUNGS: Breath sounds equal, clear to auscultation bilaterally, no wheezes, no crackles, no accessory muscle use. HEART: Regular rate and rhythm, S1, S2 without murmur, rub or gallop. ABDOMEN: Soft, nontender, nondistended, normoactive bowel sounds, no guarding, no rebound, no hepatosplenomegaly, no masses. EXTREMITIES: 2+ pulses, warm, well-perfused, no edema. less erythema; greatly improved; no puss or drain from incision; serosanginous fluid drain 3ml NEUROLOGICAL: Cranial nerves II through XII grossly intact. Normal speech, gait not observed. PSYCH: Normal mood, normal affect. SKIN: Warm, dry, normal turgor, no rashes or lesions noted Laboratory Results - last 24 hr 08/28/16 08/29/16 08/29/16 07:30 05:35 07:00 WBC RBC Hgb Hct MCV MCHC RDW Plt Count MPV Neutrophils % 78.0 Lymphocytes % 12.0 D Monocytes % 6.0 Band Neutrophils 1.0 Myelocytes 3 H Differential Comment Manual diff done Platelet Estimate Increased ESR 95 H C-Reactive Protein 5.1 H D 08/29/16 07:00 WBC 11.9 H RBC 4.29 Hgb 12.6 Hct 37.2 MCV 86.6 MCHC 33.8 RDW 14.1 Plt Count 406 MPV 7.2 L Neutrophils % Y Lymphocytes % Y Monocytes % Band Neutrophils Myelocytes Differential Comment Platelet Estimate ESR C-Reactive Protein Active Medications Generic Name Dose Route Start Last Admin Trade Name Freq PRN Reason Stop Dose Admin Acetaminophen 650 mg 08/27/16 18:44 08/28/16 14:26 Tylenol - PO 325 mg Q4H PRN Administration FEVER OR PAIN Docusate Sodium 100 mg 08/28/16 10:00 08/29/16 10:16 Colace - PO Not Given DAILY [facility] Enoxaparin Sodium 40 mg 08/28/16 10:00 08/29/16 10:16 Lovenox - SQ 40 mg DAILY [facility] Administration Hydromorphone HCl 0.5 mg 08/27/16 19:41 08/27/16 19:35 Dilaudid Injection - IVPUSH 08/30/16 19:42 0.5 mg [id number] PRN Administration PAIN Clindamycin Phosphate 50 mls @ 100 mls/hr 08/27/16 19:15 08/29/16 10:15 Cleocin 600 Mg Premix Ivpb - IVPB 100 mls/hr Q8H-IV [facility] Administration Piperacillin Sod/Tazobactam Sod 50 mls @ 100 mls/hr 08/27/16 19:15 08/29/16 10: 47 Zosyn 3.375gm Ivpb (Pre-Docked) IVPB 100 mls/hr Q8H-IV [facility]AN Administration Protocol Oxycodone HCl 5 mg 08/27/16 18:44 08/28/16 14:25 Roxicodone - PO 5 mg Q4H PRN Administration PAIN Oxycodone HCl 10 mg 08/27/16 18:44 Roxicodone - PO Q4H PRN PAIN Polyethylene Glycol 17 gm 08/28/16 10:00 08/29/16 10:16 Miralax (For Daily Use) - PO Not Given DAILY [facility] ASSESSMENT/PLAN: Images -knee xray showing anterior soft tissue swelling -MRI sowing accumulation ASSESSMENT/PLAN: 30 year old male with no known past medical history presents with right knee swelling, erythema and pain, admitted for sepsis secondary to bursitis. #sepsis secondary to septic prepateller bursitis if right knee: wash out 08/27 -white count trending down 11.9 -continue IV zosyn 3.375IVPB q8h (day 8) and clindamycin 600mg IVPB q8h (day 6) - wound culture +strep pyogenes on 08/21 -blood culutres on 08/21 negative -*repeat wound culture is negative; anaerobes negative -discuss with ID plan for antibiotic as outpatient -drain in place; 15ml overnight of serosanginous drain; < 5ml this am -ortho following -echo wnl except for mild to moderate right ventricle dilation; no vegetations FEN: Fluids: po Electrolytes: wnl Diet: regular VTE: lovenox Disposition: IV antibiotics/ drain Problem List - Problems (1) Septic infrapatellar bursitis of right knee Code(s): M71.161 - OTHER INFECTIVE BURSITIS, RIGHT KNEE B96.89 - OTH BACTERIAL AGENTS THE CAUSE OF DISEASES CLASSD [id number] Visit type - Emergency Visit Emergency Visit: Yes ED Registration Date: 08/21/16 Care time: The patient presented to the Emergency Department on the above date and was hospitalized for further evaluation of their emergent condition. - New Patient This patient is new to me today: No - Critical Care Critical Care patient: No
[2016-08-29 12:58] LABS: METAMYELOCYTE 2 % (0-2)
[2016-08-29 12:59] LABS: PLATELET ESTIMATE INCREASED (NORMAL)
--- NOTE | 2016-08-29 13:42 | PN ---
Teaching Attending Note Name of Resident: Jessa Guerrero ATTENDING PHYSICIAN STATEMENT I saw and evaluated the patient. I reviewed the resident's note and discussed the case with the resident. I agree with the resident's findings and plan as documented. SUBJECTIVE:pain only on exertion, denies Cp, SOB,fever, chills OBJECTIVE: Last Vital Signs Temp Pulse Resp BP Pulse Ox 98.2 F 83 20 125/83 98 08/29/16 10:08/29/16 10:08/29/16 10:08/29/16 10:08/29/16 09:00 General NAD Extremities no erythema to RLE. knee bandage in place c/d/i. SARATH drain with serousangeous fluid ASSESSMENT AND PLAN: 30yo M with no PMH presented to the ER and was admitted for further evaluation of their emergent condition 1. Sepsis due to septic R knee and surrounding cellulitis- s/p arthrocentesis with repeat I&D. Leukocytosis slowly trending down. Ortho plan to re-evaluate tomorrow. pending on leukoctes will repeat washout. ID abx per ID. will need termite treater abx. on Clinda/Zosyn. pain control 2. DVT ppx- lovenox
--- NOTE | 2016-08-29 16:21 | PN ---
Progress Note, Physician History of Present Illness: patient post washout feels better leg improving still some drainage - Current Medication List Current Medications: Active Medications Acetaminophen (Tylenol -) 650 mg PO Q4H PRN PRN Reason: FEVER OR PAIN Last Admin: 08/28/16 14:26 Dose: 325 mg Docusate Sodium (Colace -) 100 mg PO DAILY [facility] Last Admin: 08/29/16 10:16 Dose: Not Given Enoxaparin Sodium (Lovenox -) 40 mg SQ DAILY [facility] Last Admin: 08/29/16 10:16 Dose: 40 mg Hydromorphone HCl (Dilaudid Injection -) 0.5 mg IVPUSH [id number] PRN PRN Reason: PAIN Stop: 08/30/16 19:42 Last Admin: 08/27/16 19:35 Dose: 0.5 mg Clindamycin Phosphate (Cleocin 600 Mg Premix Ivpb -) 50 mls @ 100 mls/hr IVPB Q8H-IV [facility] Last Admin: 08/29/16 10:15 Dose: 100 mls/hr Piperacillin Sod/Tazobactam Sod (Zosyn 3.375gm Ivpb (Pre-Docked)) 50 mls @ 100 mls/hr IVPB Q8H-IV [facility] PRN Reason: Protocol Last Admin: 08/29/16 10:47 Dose: 100 mls/hr Oxycodone HCl (Roxicodone -) 5 mg PO Q4H PRN PRN Reason: PAIN Last Admin: 08/28/16 14:25 Dose: 5 mg Oxycodone HCl (Roxicodone -) 10 mg PO Q4H PRN PRN Reason: PAIN Polyethylene Glycol (Miralax (For Daily Use) -) 17 gm PO DAILY [facility] Last Admin: 08/29/16 10:16 Dose: Not Given - Objective Vital Signs: Vital Signs Temperature 98.6 F 08/29/16 15:23 Pulse Rate 90 08/29/16 15:23 Respiratory Rate 20 08/29/16 15:23 Blood Pressure 123/72 08/29/16 15:23 O2 Sat by Pulse Oximetry (%) 98 08/29/16 09:00 Constitutional: Yes: No Distress, Calm Cardiovascular: Yes: Regular Rate and Rhythm Respiratory: Yes: Regular, CTA Bilaterally Musculoskeletal: Yes: WNL Extremities: Yes: Other Wound/Incision: Yes: Dressing Dry and Intact, Other (draiange tube in place) Neurological: Yes: Alert, Oriented Psychiatric: Yes: Alert Labs: CBC, BMP 08/29/16 07:00 08/28/16 07:30 Assessment/Plan cx report noted i think this is a septic joint septic joint cellulitis of the rt knee fever plan continue current abx wbc trending down post washout continue to monitor
[2016-08-30] MEDS: CLINDAMYCIN 600MG PREMIX IVPB 50 ML IVPB SCH ×3 (02:13→17:16)
[2016-08-30] MEDS: PIPERACILLIN/TAZOB 3.375 GM 50 ML IVPB SCH ×3 (02:13→17:17)
--- NOTE | 2016-08-30 08:11 | PN ---
Progress Note (short form) - Note Progress Note: Patient has minimal pain at this point. AF VSS RLE dressing CDI wound healing well, no erythema no fluctuance small serosanguinous drainage in drain calves soft nt moderate swelling of leg and ankle NVID WBC pending a/p: septic prepatellar bursitis I reviewed today's findings with the patient. -continues to improve clinically -can use compression stocking for swelling -stable for DC if WBC trend down -to follow up in the office
[2016-08-30 08:54] LABS: MCH 28.6 pg (25.7-33.7); MCHC 33.1 g/dl (32.0-35.9); MEAN CELL VOLUME 86.3 fl (80-96); MEAN PLT VOLUME 7.2 fl (7.5-11.1); PLATELET COUNT 453 K/MM3 (134-434); WHITE BLOOD COUNT 12.9 K/mm3 (4.0-10.0)
[2016-08-30 09:09] LABS: CALCIUM 9.2 mg/dL (8.5-10.1); COCKROFT - GAULT 139.85; CREATININE 0.9 mg/dL (0.7-1.3)
[2016-08-30] MEDS: POLYETHYLENE GLYCOL 3350 119 GM BTL PO SCH (10:48)
[2016-08-30] MEDS: DOCUSATE SODIUM 100 MG CAPSULE (FP) PO SCH (10:48)
[2016-08-30] MEDS: ENOXAPARIN NA (PORCINE) 40 MG/0.4 ML DISP.SYRIN SQ SCH (14:37)
--- NOTE | 2016-08-30 14:46 | PN ---
Teaching Attending Note Name of Resident: Jessa Guerrero ATTENDING PHYSICIAN STATEMENT I saw and evaluated the patient. I reviewed the resident's note and discussed the case with the resident. I agree with the resident's findings and plan as documented. SUBJECTIVE:currently asymptomatic. denies Cp, SOb,fever, chills s/p SARATH drain removal OBJECTIVE: Last Vital Signs Temp Pulse Resp BP Pulse Ox 100.2 F H 82 18 113/78 95 08/30/16 14:40 08/30/16 14:40 08/30/16 14:40 08/30/16 14:40 08/30/16 09:00 General NAD Extremities no erythema to RLE. non pitting edema below the knee and foot. R knee with dried blood, surgical incision with no active drainage. ASSESSMENT AND PLAN: 30yo M with no PMH presented to the ER and was admitted for further evaluation of their emergent condition 1. Sepsis due to septic R knee and surrounding cellulitis- s/p arthrocentesis with repeat I&D. s/p SARATH drain removal today. leukocytosis trending up. will likely require repeat washout of the knee. MRI ordered from knee to ankle. check ESR/CRP. ortho and ID on board. will need vermin exterminator abx. on Clinda/Zosyn. pain control 2. DVT ppx- lovenox
[2016-08-30] MEDS ORDERED: VANCOMYCIN 1 GRAM (PRE-DOCKED) 250 ML IVPB ONE (17:56)
--- NOTE | 2016-08-30 21:27 | PN ---
Progress Note, Physician History of Present Illness: continues to feel stable leg showing improvement still wbc rising again - Current Medication List Current Medications: Active Medications Acetaminophen (Tylenol -) 650 mg PO Q4H PRN PRN Reason: FEVER OR PAIN Last Admin: 08/28/16 14:26 Dose: 325 mg Docusate Sodium (Colace -) 100 mg PO DAILY [facility] Last Admin: 08/30/16 10:48 Dose: Not Given Enoxaparin Sodium (Lovenox -) 40 mg SQ DAILY [facility] Last Admin: 08/30/16 14:37 Dose: Not Given Piperacillin Sod/Tazobactam Sod (Zosyn 3.375gm Ivpb (Pre-Docked)) 50 mls @ 100 mls/hr IVPB Q8H-IV [facility] PRN Reason: Protocol Last Admin: 08/30/16 17:17 Dose: 100 mls/hr Vancomycin HCl 1,250 mg/ (Dextrose) 250 mls @ 250 mls/hr IVPB BID [facility] PRN Reason: Protocol Polyethylene Glycol (Miralax (For Daily Use) -) 17 gm PO DAILY [facility] Last Admin: 08/30/16 10:48 Dose: Not Given - Objective Vital Signs: Vital Signs Temperature 98.1 F 08/30/16 19:00 Pulse Rate 77 08/30/16 19:00 Respiratory Rate 18 08/30/16 19:00 Blood Pressure 114/62 08/30/16 19:00 O2 Sat by Pulse Oximetry (%) 95 08/30/16 09:00 Constitutional: Yes: No Distress, Calm HENT: Yes: Atraumatic, Normocephalic Neck: Yes: Supple, Trachea Midline Cardiovascular: Yes: Regular Rate and Rhythm Respiratory: Yes: Regular, CTA Bilaterally Musculoskeletal: Yes: Joint Swelling, Other Extremities: Yes: Other Integumentary: Yes: Erythema (improving) Wound/Incision: Yes: Dressing Dry and Intact, Other (draiange tube from knee removed) Neurological: Yes: Alert, Oriented Psychiatric: Yes: Alert, Oriented Labs: CBC, BMP 08/30/16 07:10 08/30/16 07:10 Assessment/Plan cx report noted i think this is a septic joint septic joint cellulitis of the rt knee fever plan abx changed to vanco and zosyn now wbc still increasing patient needs repeat knee washout continue to monitor wbc mri of the joint again
[2016-08-30] MEDS ORDERED: VANCOMYCIN 1,250 MG in DEXTROSE 5%-WATER - 250 ML IVPB SCH (22:00)
[2016-08-31] MEDS ORDERED: BUPIVACAINE HCL/PF 0.5% (5MG/ML) 10 ML VIAL IJ ONE
[2016-08-31] MEDS: PIPERACILLIN/TAZOB 3.375 GM 50 ML IVPB SCH ×3 (02:51→17:10)
[2016-08-31] MEDS ORDERED: VANCOMYCIN 1,250 MG in DEXTROSE 5%-WATER - 250 ML IVPB SCH (06:00)
[2016-08-31 07:42] LABS: BASOPHIL 0.4 % (0-2.0); EOSINOPHIL 0.9 % (0-4.5); MCH 28.9 pg (25.7-33.7); MEAN CELL VOLUME 87.7 fl (80-96); MEAN PLT VOLUME 7.1 fl (7.5-11.1); NEUTROPHILS 76.1 % (42.8-82.8); PLATELET COUNT 440 K/MM3 (134-434); WHITE BLOOD COUNT 13.5 K/mm3 (4.0-10.0)
[2016-08-31] MEDS: DOCUSATE SODIUM 100 MG CAPSULE (FP) PO SCH (09:13)
[2016-08-31] MEDS: POLYETHYLENE GLYCOL 3350 119 GM BTL PO SCH (09:13)
[2016-08-31] MEDS: ENOXAPARIN NA (PORCINE) 40 MG/0.4 ML DISP.SYRIN SQ SCH (09:13)
[2016-08-31 10:26] LABS: ERYTHROCYTE SEDIMENTATION RATE 67 mm/hr (0-10)
--- NOTE | 2016-08-31 12:49 | PN ---
Progress Note (short form) - Note Progress Note: Patient remains with minimal pain. AF VSS RLE trace serosanguinous drainage minimal swelling no palpable fluctuance WBC 13 MRI - small hematoma, fluid tracking along fascial planes a/p: septic prepatellar bursitis, persistent fascial edema I reviewed today's findings with the patient. -clinically his exam remains stable with leg swelling and minimal erythema -advised his wbc, plt trended up today -reviewed that it is not entirely clear why his infection is not clearing -given his response in wbc last time down to 11, I believe 1 more washout is worth trying -again reviewed risks, benefits, alternatives -patient elected to proceed -may need to consider transfer to tertiary care facility if still not improving
[2016-08-31] MEDS ORDERED: MIDAZOLAM HCL 2 MG/2 ML SINGLE DOSE VIAL ONE ×2 (12:59→13:25)
[2016-08-31] MEDS ORDERED: PROPOFOL 20 ML ONE ×2 (12:59)
--- NOTE | 2016-08-31 13:03 | PN ---
Physical Exam: SUBJECTIVE: Patient seen and examined, afebrile, less pain , increased range of motion. Up trend in white count. OBJECTIVE: Vital Signs Period Temp Pulse Resp BP Sys/Forman Pulse Ox Last 24 Hr 98.1 F-100.2 F 64-82 18-20 102-129/59-78 95-95 GENERAL: The patient is awake, alert, and fully oriented, in no acute distress. HEAD: Normal with no signs of trauma. LUNGS: Breath sounds equal, clear to auscultation bilaterally, no wheezes, no crackles, no accessory muscle use. HEART: Regular rate and rhythm, S1, S2 without murmur, rub or gallop. ABDOMEN: Soft, nontender, nondistended, normoactive bowel sounds, no guarding, no rebound, no hepatosplenomegaly, no masses. EXTREMITIES: 2+ pulses, warm, well-perfused, Right LE edema below knee; knee incision clean and dry; surrounding erythema imprved, still with tissue swelling , NEUROLOGICAL: Cranial nerves II through XII grossly intact. Normal speech, gait not observed. PSYCH: Normal mood, normal affect. SKIN: Warm, dry, normal turgor, no rashes or lesions noted Laboratory Results - last 24 hr 08/31/16 08/31/16 06:35 06:35 WBC 13.5 H RBC 4.39 Hgb 12.7 Hct 38.5 MCV 87.7 MCHC 33.0 RDW 14.0 Plt Count 440 H MPV 7.1 L Neutrophils % 76.1 Lymphocytes % 16.7 D Monocytes % 5.9 Eosinophils % 0.9 Basophils % 0.4 ESR 67 H C-Reactive Protein 2.1 H D Active Medications Generic Name Dose Route Start Last Admin Trade Name Freq PRN Reason Stop Dose Admin Acetaminophen 650 mg 08/27/16 18:44 08/28/16 14:26 Tylenol - PO 325 mg Q4H PRN Administration FEVER OR PAIN Docusate Sodium 100 mg 08/28/16 10:00 08/31/16 09:13 Colace - PO Not Given DAILY [facility] Enoxaparin Sodium 40 mg 08/28/16 10:00 08/31/16 09:13 Lovenox - SQ Not Given DAILY [facility] Piperacillin Sod/Tazobactam Sod 50 mls @ 100 mls/hr 08/27/16 19:15 08/31/16 09: 14 Zosyn 3.375gm Ivpb (Pre-Docked) IVPB 100 mls/hr Q8H-IV [facility] Administration Protocol Vancomycin HCl 1,250 mg/ 250 mls @ 166.667 mls/hr 08/31/16 06:00 08/31/16 06:45 Dextrose IVPB 166.667 mls/hr BID@0600,1800 [facility] Administration Protocol Polyethylene Glycol 17 gm 08/28/16 10:00 08/31/16 09:13 Miralax (For Daily Use) - PO Not Given DAILY [facility] MRI 08/30 Impression: 1. Moderate suprapatellar joint effusion. 2. Marked soft tissue swelling along the anterior aspect of the proximal tibia which could be posttraumatic or represent an infectious/inflammatory process. 3. Circumferential subcutaneous soft tissue edema of the mid to distal calf with fluid tracking in the deep subcutaneous soft tissues may be consistent with cellulitis. 4. Soft tissue edema of the anterior tibialis muscle consistent with myositis. 5. Small intermediate T2 signal tissue structure along the anteromedial aspect of the iliotibial tubercle which questionably represents a hematoma. 6. No evidence of drainable abscess and no evidence of osteomyelitis. ASSESSMENT/PLAN: 30 year old male with no known past medical history presents with right knee swelling, erythema and pain, admitted for sepsis secondary to bursitis. #sepsis secondary to septic prepateller bursitis if right knee: repeated wash outs; white count trending up -white count trending up 13.5 -continue IV zosyn 3.375IVPB q8h (day 9) and clindamycin 600mg IVPB q8h (day 7) - wound culture +strep pyogenes on 08/21 -blood culutres on 08/21 negative -repeat blood and wound culture today -ortho following/discuss need for tertiary care if no improvement -echo wnl except for mild to moderate right ventricle dilation; no vegetations FEN: Fluids: po Electrolytes: wnl Diet: regular VTE: lovenox Disposition: OR for wash today; repeat wound and blood culture Problem List - Problems (1) Septic infrapatellar bursitis of right knee Code(s): M71.161 - OTHER INFECTIVE BURSITIS, RIGHT KNEE B96.89 - OTH BACTERIAL AGENTS THE CAUSE OF DISEASES CLASSD ELSWHR Visit type - Emergency Visit Emergency Visit: Yes ED Registration Date: 08/21/16 Care time: The patient presented to the Emergency Department on the above date and was hospitalized for further evaluation of their emergent condition. - New Patient This patient is new to me today: No - Critical Care Critical Care patient: No
[2016-08-31] MEDS ORDERED: LIDOCAINE HCL 1%, 10 MG/ML (20ML VIAL) IJ ONE (13:38)
[2016-08-31] MEDS ORDERED: BACITRACIN 50,000 UNITS VIAL TP ONE (14:07)
[2016-08-31] MEDS ORDERED: HYDROmorphone HCL CARPU-JECT 2 MG/1 ML DISP.SYRIN ONE (14:23)
--- NOTE | 2016-08-31 14:23 | OP ---
Operative Note - Note: Operative Date: 08/31/16 Pre-Operative Diagnosis: right septic prepatellar bursitis Operation: irrigation and debridement of right prepatellar bursa Post-Operative Diagnosis: Same as Pre-op Surgeon: Win Lowry Anesthesiologist/FLEET TECHNICIAN: Norman Gale Anesthesia: General, Local Specimens Removed: cx x2 Estimated Blood Loss (mls): 50 Drains & Tubes with Location: SARATH x1 Operative Report Dictated: Yes
[2016-08-31] MEDS: HYDROmorphone HCL CARPU-JECT 1 MG/1 ML DISP.SYRIN IVPUSH PRN ×2 (14:30→14:40)
--- NOTE | 2016-08-31 15:01 | OP ---
DATE OF OPERATION: 08/31/2016 PREOPERATIVE DIAGNOSIS: Persistent right knee infection. POSTOPERATIVE DIAGNOSIS: Persistent right knee infection. PROCEDURE: Right knee repeat incision and drainage. SURGEON: Win Bowles MD ANESTHESIA TYPE: General plus local. POSTOPERATIVE CONDITION: Stable. SPECIMENS: Cultures x2. INDICATIONS: This is a pleasant 30-year-old gentleman who had previously undergone the same procedure twice for persistent prepatellar infection. His white blood cell count was trending up once again after the last debridement. Treatment options including continued nonoperative management with antibiotics versus repeat I&D were discussed. Given his excellent drop in white blood cell count following the last procedure, I believe he has an excellent chance at having improvement with this. I reviewed surgical risks including bleeding, infection, neurovascular injury, need for further surgery, postoperative pain and stiffness, spread or persistent infection. We discussed medical risks such as heart attack, stroke, DVT, PE, and . Patient voiced understanding and elected to proceed. DESCRIPTION OF PROCEDURE: The patient was brought to the operating room where sedation anesthesia was administered. The right lower extremity was then prepped and draped in usual sterile fashion. Preoperative antibiotics were held given his previous antibiotic regimen. Usual timeout procedure was performed. At this point, the area about the previous wounds and about the bursa was injected subcutaneously with 1% lidocaine. The sutures were removed. The previous wound was opened. Then, I extended 1 cm more proximally and distally to provide additional exposure. Inspection of the wound demonstrated no purulence. There was a small amount of necrotic material noted in the bursal region. Utilizing finger dissection, curette as well as rongeur, this was debrided. The area of previous hematoma noted on MRI was identified, and the hematoma was evacuated. The wound was then packed with 1 g of vancomycin. The proximal and distal portions of the wound were approximated using 2-0 Prolene. The drain was now inserted into the bursal region. A compressive dressing was then placed. The patient was transferred to recovery room in stable condition. WIN BOWLES M.D. [id number]
[2016-08-31] MEDS ORDERED: ACETAMINOPHEN 325 MG TABLET (FP) PO PRN (15:03)
[2016-08-31] MEDS ORDERED: oxyCODONE HCL 5 MG TABLET PO PRN (15:56)
--- NOTE | 2016-08-31 16:55 | PN ---
Teaching Attending Note Name of Resident: Jessa Guerrero ATTENDING PHYSICIAN STATEMENT I saw and evaluated the patient. I reviewed the resident's note and discussed the case with the resident. I agree with the resident's findings and plan as documented. SUBJECTIVE: Patient has no complaints. OBJECTIVE: Vital Signs Period Temp Pulse Resp BP Sys/Forman Pulse Ox Last 24 Hr 98.1 F-99.0 F 56-81 14-20 102-139/59-88 95-99 HEART: S1 S2, RRR LUNGS: Clear ABDOMEN: Soft, non-tender, non-distended, normal BS EXTREMITIES: Right knee swollen with decreased erythema, incision clean ASSESSMENT AND PLAN: This is a 30-year-old man with no medical history who presented to the ER with pain, redness and swelling of his right knee. 1. Sepsis secondary to septic R prepatellar bursitis and cellulitis - s/p right knee I&D 08/24, 08/27 - WBC increased to 13.5 today - s/p irrigation and debridement of right prepatellar bursa today - Continue Zosyn, Vancomycin
[2016-08-31] MEDS: VANCOMYCIN 1,250 MG in DEXTROSE 5%-WATER - 250 ML IVPB SCH (17:10)
--- NOTE | 2016-08-31 22:48 | PN ---
Progress Note, Physician History of Present Illness: patient post wash out of the knee joint no issues - Current Medication List Current Medications: Active Medications Acetaminophen (Tylenol -) 650 mg PO Q4H PRN PRN Reason: FEVER OR PAIN Docusate Sodium (Colace -) 100 mg PO DAILY [facility] Enoxaparin Sodium (Lovenox -) 40 mg SQ DAILY [facility] Piperacillin Sod/Tazobactam Sod (Zosyn 3.375gm Ivpb (Pre-Docked)) 50 mls @ 100 mls/hr IVPB Q8H-IV [facility] PRN Reason: Protocol Last Admin: 08/31/16 17:10 Dose: 100 mls/hr Vancomycin HCl 1,250 mg/ (Dextrose) 250 mls @ 166.667 mls/hr IVPB BID@0600, 1800 [facility] PRN Reason: Protocol Last Admin: 08/31/16 17:10 Dose: 166.667 mls/hr Oxycodone HCl (Roxicodone -) 10 mg PO Q4H PRN PRN Reason: PAIN Last Admin: 08/31/16 16:12 Dose: 10 mg Polyethylene Glycol (Miralax (For Daily Use) -) 17 gm PO DAILY [facility] - Objective Vital Signs: Vital Signs Temperature 98.2 F 08/31/16 19:00 Pulse Rate 72 08/31/16 19:00 Respiratory Rate 20 08/31/16 19:00 Blood Pressure 116/60 08/31/16 19:00 O2 Sat by Pulse Oximetry (%) 98 08/31/16 15:15 Constitutional: Yes: No Distress, Calm HENT: Yes: Atraumatic Neck: Yes: Supple Cardiovascular: Yes: Regular Rate and Rhythm Gastrointestinal: Yes: Normal Bowel Sounds, Soft Musculoskeletal: Yes: Other Extremities: Yes: Other Integumentary: Yes: Other Wound/Incision: Yes: Dressing Dry and Intact Neurological: Yes: Alert, Oriented Psychiatric: Yes: Alert, Oriented Labs: CBC, BMP 08/31/16 06:35 08/30/16 07:10 - ....Imaging MRI: Report Reviewed, Image Reviewed Assessment/Plan cx report noted i think this is a septic joint septic joint cellulitis of the rt knee fever plan wbc increased mri shows supra patellar collection rest of the mri noted plan will be to monitor the wbc repeat the mri again in few days abx for quite some time
[2016-09-01] MEDS: PIPERACILLIN/TAZOB 3.375 GM 50 ML IVPB SCH ×3 (01:53→18:24)
[2016-09-01] MEDS: VANCOMYCIN 1,250 MG in DEXTROSE 5%-WATER - 250 ML IVPB SCH ×2 (06:20→18:38)
[2016-09-01 08:42] LABS: BASOPHIL 0.2 % (0-2.0); EOSINOPHIL 1.2 % (0-4.5); MCH 29.3 pg (25.7-33.7); MCHC 33.8 g/dl (32.0-35.9); MEAN CELL VOLUME 86.7 fl (80-96); NEUTROPHILS 74.2 % (42.8-82.8); PLATELET COUNT 382 K/MM3 (134-434); RDW 13.7 % (11.9-15.9)
[2016-09-01 09:08] LABS: CALCIUM 8.5 mg/dL (8.5-10.1)
[2016-09-01 09:10] LABS: COCKROFT - GAULT 179.81; CREATININE 0.7 mg/dL (0.7-1.3)
[2016-09-01] MEDS: POLYETHYLENE GLYCOL 3350 119 GM BTL PO SCH (11:01)
[2016-09-01] MEDS: ENOXAPARIN NA (PORCINE) 40 MG/0.4 ML DISP.SYRIN SQ SCH (11:01)
[2016-09-01] MEDS: DOCUSATE SODIUM 100 MG CAPSULE (FP) PO SCH (11:01)
--- NOTE | 2016-09-01 11:34 | PN ---
Physical Exam: SUBJECTIVE: Patient seen and examined. s/p wash out of right knee bursitis yesterday, necrotic tissue removed. Afebrile, white count trending down. OBJECTIVE: Vital Signs Period Temp Pulse Resp BP Sys/Forman Pulse Ox Last 24 Hr 97.9 F-99.0 F 56-93 14-20 109-139/59-98 97-99 GENERAL: The patient is awake, alert, and fully oriented, in no acute distress. HEAD: Normal with no signs of trauma. EYES: PERRL, extraocular movements intact, sclera anicteric, conjunctiva clear. No ptosis. LUNGS: Breath sounds equal, clear to auscultation bilaterally, no wheezes, no crackles, no accessory muscle use. HEART: Regular rate and rhythm, S1, S2 without murmur, rub or gallop. ABDOMEN: Soft, nontender, nondistended, normoactive bowel sounds, no guarding, no rebound, no hepatosplenomegaly, no masses. EXTREMITIES: 2+ pulses, warm, well-perfused, no edema. Right knee with drain; sp wash out yest;5 ml serosanginous fluid NEUROLOGICAL: Cranial nerves II through XII grossly intact. Normal speech, gait not observed. PSYCH: Normal mood, normal affect. SKIN: Warm, dry, normal turgor, no rashes or lesions noted, Laboratory Results - last 24 hr 09/01/16 09/01/16 07:45 07:45 WBC 11.0 H RBC 3.89 L Hgb 11.4 L D Hct 33.7 L MCV 86.7 MCHC 33.8 RDW 13.7 Plt Count 382 MPV 7.0 L Neutrophils % 74.2 Lymphocytes % 18.8 Monocytes % 5.6 Eosinophils % 1.2 Basophils % 0.2 Sodium 140 Potassium 4.5 Chloride 103 Carbon Dioxide 28 Anion Gap 9 BUN 16 Creatinine 0.7 D Random Glucose 81 Calcium 8.5 Active Medications Generic Name Dose Route Start Last Admin Trade Name Freq PRN Reason Stop Dose Admin Acetaminophen 650 mg 08/31/16 15:03 Tylenol - PO Q4H PRN FEVER OR PAIN Docusate Sodium 100 mg 09/01/16 10:00 09/01/16 11:01 Colace - PO Not Given DAILY [facility] Enoxaparin Sodium 40 mg 09/01/16 10:00 09/01/16 11:01 Lovenox - SQ 40 mg DAILY [facility] Administration Piperacillin Sod/Tazobactam Sod 50 mls @ 100 mls/hr 08/31/16 18:00 09/01/16 11: 00 Zosyn 3.375gm Ivpb (Pre-Docked) IVPB 100 mls/hr Q8H-IV [facility] Administration Protocol Vancomycin HCl 1,250 mg/ 250 mls @ 166.667 mls/hr 08/31/16 18:00 09/01/16 06:20 Dextrose IVPB 166.667 mls/hr BID@0600,1800 [facility] Administration Protocol Oxycodone HCl 10 mg 08/31/16 15:56 08/31/16 16:12 Roxicodone - PO 10 mg Q4H PRN Administration PAIN Polyethylene Glycol 17 gm 09/01/16 10:00 09/01/16 11:01 Miralax (For Daily Use) - PO Not Given DAILY [facility] ASSESSMENT/PLAN: MRI 08/30 Impression: 1. Moderate suprapatellar joint effusion. 2. Marked soft tissue swelling along the anterior aspect of the proximal tibia which could be posttraumatic or represent an infectious/inflammatory process. 3. Circumferential subcutaneous soft tissue edema of the mid to distal calf with fluid tracking in the deep subcutaneous soft tissues may be consistent with cellulitis. 4. Soft tissue edema of the anterior tibialis muscle consistent with myositis. 5. Small intermediate T2 signal tissue structure along the anteromedial aspect of the iliotibial tubercle which questionably represents a hematoma. 6. No evidence of drainable abscess and no evidence of osteomyelitis. -echo wnl except for mild to moderate right ventricle dilation; no vegetations ASSESSMENT/PLAN: 30 year old male with no known past medical history presents with right knee swelling, erythema and pain, admitted for sepsis secondary to bursitis. #sepsis secondary to septic prepateller bursitis if right knee: -repeated wash outs; last one yesterday -white count trending down -continue IV zosyn 3.375IVPB q8h (day 10) and clindamycin 600mg IVPB q8h (day 8) -repeat blood and wound culture pending -ortho / ID following -last scourer antibiotics as per ID; duration and po meds vs picc line? FEN: Fluids: po Electrolytes: wnl Diet: regular VTE: lovenox Disposition: pending wound culture and continued white count trending down Problem List - Problems (1) Septic infrapatellar bursitis of right knee Code(s): M71.161 - OTHER INFECTIVE BURSITIS, RIGHT KNEE B96.89 - OTH BACTERIAL AGENTS THE CAUSE OF DISEASES CLASSD ELSWHR Visit type - Emergency Visit Emergency Visit: Yes ED Registration Date: 08/21/16 Care time: The patient presented to the Emergency Department on the above date and was hospitalized for further evaluation of their emergent condition. - New Patient This patient is new to me today: No - Critical Care Critical Care patient: No
--- NOTE | 2016-09-01 13:11 | PN ---
Progress Note, Physician History of Present Illness: patient post wash out of the knee joint no issues stable drainage tube draining patient feels comfortable - Current Medication List Current Medications: Active Medications Acetaminophen (Tylenol -) 650 mg PO Q4H PRN PRN Reason: FEVER OR PAIN Docusate Sodium (Colace -) 100 mg PO DAILY [facility] Last Admin: 09/01/16 11:01 Dose: Not Given Enoxaparin Sodium (Lovenox -) 40 mg SQ DAILY [facility] Last Admin: 09/01/16 11:01 Dose: 40 mg Piperacillin Sod/Tazobactam Sod (Zosyn 3.375gm Ivpb (Pre-Docked)) 50 mls @ 100 mls/hr IVPB Q8H-IV [facility] PRN Reason: Protocol Last Admin: 09/01/16 11:00 Dose: 100 mls/hr Vancomycin HCl 1,250 mg/ (Dextrose) 250 mls @ 166.667 mls/hr IVPB BID@0600, 1800 [facility] PRN Reason: Protocol Last Admin: 09/01/16 06:20 Dose: 166.667 mls/hr Oxycodone HCl (Roxicodone -) 10 mg PO Q4H PRN PRN Reason: PAIN Last Admin: 08/31/16 16:12 Dose: 10 mg Polyethylene Glycol (Miralax (For Daily Use) -) 17 gm PO DAILY [facility] Last Admin: 09/01/16 11:01 Dose: Not Given - Objective Vital Signs: Vital Signs Temperature 98.3 F 09/01/16 07:31 Pulse Rate 79 09/01/16 07:31 Respiratory Rate 20 09/01/16 07:31 Blood Pressure 109/82 09/01/16 07:31 O2 Sat by Pulse Oximetry (%) 98 08/31/16 21:00 Constitutional: Yes: No Distress, Calm Cardiovascular: Yes: Regular Rate and Rhythm Respiratory: Yes: Regular, CTA Bilaterally Gastrointestinal: Yes: Normal Bowel Sounds, Soft Musculoskeletal: Yes: WNL Extremities: Yes: WNL Integumentary: Yes: WNL Wound/Incision: Yes: Dressing Dry and Intact Neurological: Yes: Alert, Oriented Psychiatric: Yes: Alert, Oriented Labs: CBC, BMP 09/01/16 07:45 09/01/16 07:45 Assessment/Plan cx report noted i think this is a septic joint septic joint cellulitis of the rt knee fever plan wbc decreased post wash patients leg starting to improve patient comfortable no new events continue current mgmt
--- NOTE | 2016-09-01 14:33 | PN ---
Teaching Attending Note Name of Resident: Jessa Guerrero ATTENDING PHYSICIAN STATEMENT I saw and evaluated the patient. I reviewed the resident's note and discussed the case with the resident. I agree with the resident's findings and plan as documented. SUBJECTIVE: Patient has no complaints. OBJECTIVE: Vital Signs Period Temp Pulse Resp BP Sys/Forman Pulse Ox Last 24 Hr 97.9 F-99.0 F 68-93 16-20 109-138/59-98 97-99 HEART: S1 S2, RRR LUNGS: Clear ABDOMEN: Soft, non-tender, non-distended, normal BS EXTREMITIES: Right knee incision clean ASSESSMENT AND PLAN: This is a 30-year-old man with no medical history who presented to the ER with pain, redness and swelling of his right knee. 1. Sepsis secondary to septic R prepatellar bursitis and cellulitis - s/p right knee I&D 08/24, 08/27, and irrigation and debridement of right prepatellar bursa 08/31 - WBC improved to 11.0 today - Continue Zosyn, Vancomycin
[2016-09-01] MEDS ORDERED: PT OWN MED DRAWER 7, Y5N ONE (18:34)
[2016-09-02] MEDS: PIPERACILLIN/TAZOB 3.375 GM 50 ML IVPB SCH ×3 (01:41→17:27)
[2016-09-02] MEDS: VANCOMYCIN 1,250 MG in DEXTROSE 5%-WATER - 250 ML IVPB SCH ×2 (06:02→18:27)
[2016-09-02 08:21] LABS: BASOPHIL 0.3 % (0-2.0); EOSINOPHIL 1.7 % (0-4.5); MCH 29.6 pg (25.7-33.7); MCHC 34.4 g/dl (32.0-35.9); MEAN CELL VOLUME 86.1 fl (80-96); MEAN PLT VOLUME 7.2 fl (7.5-11.1); PLATELET COUNT 374 K/MM3 (134-434); RDW 14.1 % (11.9-15.9); WHITE BLOOD COUNT 6.9 K/mm3 (4.0-10.0)
[2016-09-02] MEDS: DOCUSATE SODIUM 100 MG CAPSULE (FP) PO SCH (09:23)
[2016-09-02] MEDS: POLYETHYLENE GLYCOL 3350 119 GM BTL PO SCH (09:23)
[2016-09-02] MEDS: ENOXAPARIN NA (PORCINE) 40 MG/0.4 ML DISP.SYRIN SQ SCH (09:24)
--- NOTE | 2016-09-02 14:56 | PN ---
Teaching Attending Note Name of Resident: Jessa Guerrero ATTENDING PHYSICIAN STATEMENT I saw and evaluated the patient. I reviewed the resident's note and discussed the case with the resident. I agree with the resident's findings and plan as documented. SUBJECTIVE: Patient has no complaints. OBJECTIVE: Vital Signs Period Temp Pulse Resp BP Sys/Forman Pulse Ox Last 24 Hr 97.9 F-99.1 F 67-83 18-20 106-124/58-79 98-98 HEART: S1 S2, RRR LUNGS: Clear ABDOMEN: Soft, non-tender, non-distended, normal BS EXTREMITIES: Decreased swelling and erythema of right knee, incision clean ASSESSMENT AND PLAN: This is a 30-year-old man with no medical history who presented to the ER with pain, redness and swelling of his right knee. 1. Sepsis secondary to septic R prepatellar bursitis and cellulitis - s/p right knee I&D 08/24, 08/27, and irrigation and debridement of right prepatellar bursa 08/31 - WBC improved to 6.9 today - Continue Zosyn, Vancomycin
--- NOTE | 2016-09-02 15:20 | PN ---
Progress Note, Physician History of Present Illness: patient stable wbc has normalized leg starting to look better swelling has started to go down drainage tube removed - Current Medication List Current Medications: Active Medications Acetaminophen (Tylenol -) 650 mg PO Q4H PRN PRN Reason: FEVER OR PAIN Docusate Sodium (Colace -) 100 mg PO DAILY [facility] Last Admin: 09/02/16 09:23 Dose: 100 mg Enoxaparin Sodium (Lovenox -) 40 mg SQ DAILY [facility] Last Admin: 09/02/16 09:24 Dose: 40 mg Piperacillin Sod/Tazobactam Sod (Zosyn 3.375gm Ivpb (Pre-Docked)) 50 mls @ 100 mls/hr IVPB Q8H-IV [facility] PRN Reason: Protocol Last Admin: 09/02/16 09:23 Dose: 100 mls/hr Vancomycin HCl 1,250 mg/ (Dextrose) 250 mls @ 166.667 mls/hr IVPB BID@0600, 1800 [facility] PRN Reason: Protocol Last Admin: 09/02/16 06:02 Dose: 166.667 mls/hr Oxycodone HCl (Roxicodone -) 10 mg PO Q4H PRN PRN Reason: PAIN Last Admin: 08/31/16 16:12 Dose: 10 mg Polyethylene Glycol (Miralax (For Daily Use) -) 17 gm PO DAILY [facility] Last Admin: 09/02/16 09:23 Dose: Not Given - Objective Vital Signs: Vital Signs Temperature 98.0 F 09/02/16 10:59 Pulse Rate 67 09/02/16 10:59 Respiratory Rate 18 09/02/16 10:59 Blood Pressure 119/71 09/02/16 10:59 O2 Sat by Pulse Oximetry (%) 98 09/02/16 11:50 Constitutional: Yes: No Distress, Calm Cardiovascular: Yes: Regular Rate and Rhythm Respiratory: Yes: Regular, CTA Bilaterally Gastrointestinal: Yes: Normal Bowel Sounds, Soft Musculoskeletal: Yes: Other Extremities: Yes: Other Integumentary: Yes: WNL Wound/Incision: Yes: Dressing Dry and Intact Neurological: Yes: Alert, Oriented Psychiatric: Yes: Alert, Oriented Labs: CBC, BMP 09/02/16 07:30 09/01/16 07:45 Assessment/Plan cx report noted i think this is a septic joint septic joint cellulitis of the rt knee fever wbc has normalized plan continue abx for now will check esr crp tomorrow patient probably can go home on tuesday if wbc remains normal will need 10 to 12 days of abx from tuesday should be able to switch to oral oral abx will be clinda 300mg every 8hrly and augmenting 875 mg twie aday for another 10 days will see crp tomorrow and decide if he needs blood work up as outpatient
--- NOTE | 2016-09-02 16:43 | PN ---
Physical Exam: SUBJECTIVE: Patient seen and examined, drain out today wbc 6.9; afebrile OBJECTIVE: Vital Signs Period Temp Pulse Resp BP Sys/Forman Pulse Ox Last 24 Hr 97.9 F-99.1 F 67-83 18-20 106-124/58-79 98-98 GENERAL: The patient is awake, alert, and fully oriented, in no acute distress. HEAD: Normal with no signs of trauma. EYES: PERRL, extraocular movements intact, sclera anicteric, conjunctiva clear. No ptosis. ENT: Ears normal, nares patent, oropharynx clear without exudates, moist mucous membranes. NECK: Trachea midline, full range of motion, supple. LUNGS: Breath sounds equal, clear to auscultation bilaterally, no wheezes, no crackles, no accessory muscle use. HEART: Regular rate and rhythm, S1, S2 without murmur, rub or gallop. ABDOMEN: Soft, nontender, nondistended, normoactive bowel sounds, no guarding, no rebound, no hepatosplenomegaly, no masses. EXTREMITIES: 2+ pulses, warm, well-perfused, no edema. drain out; incision clean , dry intact; less erythema, swelling NEUROLOGICAL: Cranial nerves II through XII grossly intact. Normal speech, gait not observed. PSYCH: Normal mood, normal affect. SKIN: Warm, dry, normal turgor, no rashes or lesions noted Laboratory Results - last 24 hr 09/02/16 07:30 WBC 6.9 D RBC 3.78 L Hgb 11.2 L Hct 32.5 L MCV 86.1 MCHC 34.4 RDW 14.1 Plt Count 374 MPV 7.2 L Neutrophils % 60.0 Lymphocytes % 29.2 D Monocytes % 8.8 Eosinophils % 1.7 Basophils % 0.3 Active Medications Generic Name Dose Route Start Last Admin Trade Name Freq PRN Reason Stop Dose Admin Acetaminophen 650 mg 08/31/16 15:03 Tylenol - PO Q4H PRN FEVER OR PAIN Docusate Sodium 100 mg 09/01/16 10:00 09/02/16 09:23 Colace - PO 100 mg DAILY [facility] Administration Enoxaparin Sodium 40 mg 09/01/16 10:00 09/02/16 09:24 Lovenox - SQ 40 mg DAILY [facility] Administration Piperacillin Sod/Tazobactam Sod 50 mls @ 100 mls/hr 08/31/16 18:00 09/02/16 09: 23 Zosyn 3.375gm Ivpb (Pre-Docked) IVPB 100 mls/hr Q8H-IV [facility] Administration Protocol Vancomycin HCl 1,250 mg/ 250 mls @ 166.667 mls/hr 08/31/16 18:00 09/02/16 06:02 Dextrose IVPB 166.667 mls/hr BID@0600,1800 [facility] Administration Protocol Oxycodone HCl 10 mg 08/31/16 15:56 08/31/16 16:12 Roxicodone - PO 10 mg Q4H PRN Administration PAIN Polyethylene Glycol 17 gm 09/01/16 10:00 09/02/16 09:23 Miralax (For Daily Use) - PO Not Given DAILY [facility] MRI 08/30 Impression: 1. Moderate suprapatellar joint effusion. 2. Marked soft tissue swelling along the anterior aspect of the proximal tibia which could be posttraumatic or represent an infectious/inflammatory process. 3. Circumferential subcutaneous soft tissue edema of the mid to distal calf with fluid tracking in the deep subcutaneous soft tissues may be consistent with cellulitis. 4. Soft tissue edema of the anterior tibialis muscle consistent with myositis. 5. Small intermediate T2 signal tissue structure along the anteromedial aspect of the iliotibial tubercle which questionably represents a hematoma. 6. No evidence of drainable abscess and no evidence of osteomyelitis. -echo wnl except for mild to moderate right ventricle dilation; no vegetations ASSESSMENT/PLAN: 30 year old male with no known past medical history presents with right knee swelling, erythema and pain, admitted for sepsis secondary to bursitis. 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; duration and po meds FEN: Fluids: po Electrolytes: wnl Diet: regular VTE: lovenox Disposition: wbc trend; if continues to be stable 10 to 12 days of abx if d/c'd Tuesday should be able to switch to oral oral abx will be clinda 300mg every 8hrly and augmentin 875 mg twice a day for another 10 days as per ID Problem List - Problems (1) Septic infrapatellar bursitis of right knee Code(s): M71.161 - OTHER INFECTIVE BURSITIS, RIGHT KNEE B96.89 - OTH BACTERIAL AGENTS THE CAUSE OF DISEASES CLASSD [id number] Visit type - Emergency Visit Emergency Visit: Yes ED Registration Date: 08/21/16 Care time: The patient presented to the Emergency Department on the above date and was hospitalized for further evaluation of their emergent condition. - New Patient This patient is new to me today: No - Critical Care Critical Care patient: No
[2016-09-03] MEDS: PIPERACILLIN/TAZOB 3.375 GM 50 ML IVPB SCH ×3 (03:00→18:50)
[2016-09-03] MEDS: VANCOMYCIN 1,250 MG in DEXTROSE 5%-WATER - 250 ML IVPB SCH ×2 (05:58→17:37)
[2016-09-03 07:15] LABS: BASOPHIL 0.4 % (0-2.0); EOSINOPHIL 1.6 % (0-4.5); MCH 29.7 pg (25.7-33.7); MCHC 34.7 g/dl (32.0-35.9); MEAN CELL VOLUME 85.8 fl (80-96); MEAN PLT VOLUME 7.1 fl (7.5-11.1); NEUTROPHILS 57.9 % (42.8-82.8); PLATELET COUNT 381 K/MM3 (134-434); RDW 13.8 % (11.9-15.9); WHITE BLOOD COUNT 6.6 K/mm3 (4.0-10.0)
[2016-09-03] MEDS: ENOXAPARIN NA (PORCINE) 40 MG/0.4 ML DISP.SYRIN SQ SCH (09:02)
[2016-09-03] MEDS: DOCUSATE SODIUM 100 MG CAPSULE (FP) PO SCH (09:02)
[2016-09-03] MEDS: POLYETHYLENE GLYCOL 3350 119 GM BTL PO SCH (09:03)
--- NOTE | 2016-09-03 11:12 | PN ---
Progress Note, Physician History of Present Illness: patient stable doing well no issues feels better - Current Medication List Current Medications: Active Medications Acetaminophen (Tylenol -) 650 mg PO Q4H PRN PRN Reason: FEVER OR PAIN Docusate Sodium (Colace -) 100 mg PO DAILY [facility] Last Admin: 09/03/16 09:02 Dose: 100 mg Enoxaparin Sodium (Lovenox -) 40 mg SQ DAILY [facility] Last Admin: 09/03/16 09:02 Dose: 40 mg Piperacillin Sod/Tazobactam Sod (Zosyn 3.375gm Ivpb (Pre-Docked)) 50 mls @ 100 mls/hr IVPB Q8H-IV [facility] PRN Reason: Protocol Last Admin: 09/03/16 09:02 Dose: 100 mls/hr Vancomycin HCl 1,250 mg/ (Dextrose) 250 mls @ 166.667 mls/hr IVPB BID@0600, 1800 AD[facility]AN PRN Reason: Protocol Last Admin: 09/03/16 05:58 Dose: 166.667 mls/hr Oxycodone HCl (Roxicodone -) 10 mg PO Q4H PRN PRN Reason: PAIN Last Admin: 08/31/16 16:12 Dose: 10 mg Polyethylene Glycol (Miralax (For Daily Use) -) 17 gm PO DAILY [facility] Last Admin: 09/03/16 09:03 Dose: Not Given - Objective Vital Signs: Vital Signs Temperature 97.9 F 09/03/16 09:00 Pulse Rate 66 09/03/16 09:00 Respiratory Rate 18 09/03/16 09:00 Blood Pressure 100/54 09/03/16 09:00 O2 Sat by Pulse Oximetry (%) 98 09/02/16 21:00 Constitutional: Yes: No Distress, Calm Cardiovascular: Yes: Regular Rate and Rhythm Respiratory: Yes: Regular, CTA Bilaterally Gastrointestinal: Yes: Normal Bowel Sounds, Soft Musculoskeletal: Yes: Other Extremities: Yes: Other Wound/Incision: Yes: Dressing Dry and Intact Neurological: Yes: Alert, Oriented Psychiatric: Yes: Alert, Oriented Labs: CBC, BMP 09/03/16 06:40 09/01/16 07:45 Assessment/Plan cx report noted i think this is a septic joint septic joint cellulitis of the rt knee fever wbc has normalized crp trending down plan continue abx for now will check esr crp tomorrow patient probably can go home on tuesday if wbc remains normal will need 10 to 12 days of abx from tuesday should be able to switch to oral oral abx will be clinda 300mg every 8hrly and augmenting 875 mg twie aday for another 10 days
--- NOTE | 2016-09-03 13:57 | PN ---
Teaching Attending Note Name of Resident: Jessa Guerrero ATTENDING PHYSICIAN STATEMENT I saw and evaluated the patient. I reviewed the resident's note and discussed the case with the resident. I agree with the resident's findings and plan as documented. SUBJECTIVE: No complaints. Ambulating. OBJECTIVE: Vital Signs Period Temp Pulse Resp BP Sys/Forman Pulse Ox Last 24 Hr 97.9 F-98.6 F 60-94 18-20 100-125/48-72 98-98 HEART: S1 S2, RRR LUNGS: Clear ABDOMEN: Soft, non-tender, non-distended, normal BS EXTREMITIES: Decreased swelling and erythema of right knee, incision clean ASSESSMENT AND PLAN: This is a 30-year-old man with no medical history who presented to the ER with pain, redness and swelling of his right knee. 1. Sepsis secondary to septic R prepatellar bursitis and cellulitis - s/p right knee I&D 08/24, 08/27, and irrigation and debridement of right prepatellar bursa 08/31 - WBC remains normal - ESR 25 -> 95 -> 67 -> 50 - C-RP 24.6 -> 5.1 -> 2.1 -> 1.1 - Continue Zosyn, Vancomycin - Probable discharge tomorrow on Augmentin, Clindamycin
--- NOTE | 2016-09-03 14:55 | PN ---
Physical Exam: SUBJECTIVE: Patient seen and examined afebrile, white count wnl, pain improved, no complaints. OBJECTIVE: Vital Signs Period Temp Pulse Resp BP Sys/Forman Pulse Ox Last 24 Hr 97.9 F-98.6 F 60-94 18-20 100-125/48-72 98-98 GENERAL: The patient is awake, alert, and fully oriented, in no acute distress. HEAD: Normal with no signs of trauma. EYES: PERRL, extraocular movements intact, sclera anicteric, conjunctiva clear. No ptosis. ENT: Ears normal, nares patent, oropharynx clear without exudates, moist mucous membranes. NECK: Trachea midline, full range of motion, supple. LUNGS: Breath sounds equal, clear to auscultation bilaterally, no wheezes, no crackles, no accessory muscle use. HEART: Regular rate and rhythm, S1, S2 without murmur, rub or gallop. ABDOMEN: Soft, nontender, nondistended, normoactive bowel sounds, no guarding, no rebound, no hepatosplenomegaly, no masses. EXTREMITIES: 2+ pulses, warm, well-perfused, right LE edema , mid calf, unchanged from yesterday, no tenderness or erythema, rt knee incision clean, dry intact, NEUROLOGICAL: Cranial nerves II through XII grossly intact. Normal speech, gait not observed. PSYCH: Normal mood, normal affect. SKIN: Warm, dry, normal turgor, no rashes or lesions noted Laboratory Results - last 24 hr 09/03/16 09/03/16 09/03/16 06:40 06:40 06:40 WBC 6.6 RBC 3.80 L Hgb 11.3 L Hct 32.6 L MCV 85.8 MCHC 34.7 RDW 13.8 Plt Count 381 MPV 7.1 L Neutrophils % 57.9 Lymphocytes % 30.9 Monocytes % 9.2 Eosinophils % 1.6 Basophils % 0.4 ESR 50 H C-Reactive Protein 1.1 H D Active Medications Generic Name Dose Route Start Last Admin Trade Name Freq PRN Reason Stop Dose Admin Acetaminophen 650 mg 08/31/16 15:03 Tylenol - PO Q4H PRN FEVER OR PAIN Docusate Sodium 100 mg 09/01/16 10:00 09/03/16 09:02 Colace - PO 100 mg DAILY [facility] Administration Enoxaparin Sodium 40 mg 09/01/16 10:00 09/03/16 09:02 Lovenox - SQ 40 mg DAILY [facility] Administration Piperacillin Sod/Tazobactam Sod 50 mls @ 100 mls/hr 08/31/16 18:00 09/03/16 09: 02 Zosyn 3.375gm Ivpb (Pre-Docked) IVPB 100 mls/hr Q8H-IV [facility] Administration Protocol Vancomycin HCl 1,250 mg/ 250 mls @ 166.667 mls/hr 08/31/16 18:00 09/03/16 05:58 Dextrose IVPB 166.667 mls/hr BID@0600,1800 AD[facility]AN Administration Protocol Oxycodone HCl 10 mg 08/31/16 15:56 08/31/16 16:12 Roxicodone - PO 10 mg Q4H PRN Administration PAIN Polyethylene Glycol 17 gm 09/01/16 10:00 09/03/16 09:03 Miralax (For Daily Use) - PO Not Given DAILY [facility] ASSESSMENT/PLAN: MRI 08/30 Impression: 1. Moderate suprapatellar joint effusion. 2. Marked soft tissue swelling along the anterior aspect of the proximal tibia which could be posttraumatic or represent an infectious/inflammatory process. 3. Circumferential subcutaneous soft tissue edema of the mid to distal calf with fluid tracking in the deep subcutaneous soft tissues may be consistent with cellulitis. 4. Soft tissue edema of the anterior tibialis muscle consistent with myositis. 5. Small intermediate T2 signal tissue structure along the anteromedial aspect of the iliotibial tubercle which questionably represents a hematoma. 6. No evidence of drainable abscess and no evidence of osteomyelitis. -echo wnl except for mild to moderate right ventricle dilation; no vegetations ASSESSMENT/PLAN: 30 year old male with no known past medical history presents with right knee swelling, erythema and pain, admitted for sepsis secondary to bursitis. 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 Lowry on Tuesday at 8 am Problem List - Problems (1) Septic infrapatellar bursitis of right knee Code(s): M71.161 - OTHER INFECTIVE BURSITIS, RIGHT KNEE B96.89 - OT BACTERIAL AGENTS THE CAUSE OF DISEASES CLASSD [id number] Visit type - Emergency Visit Emergency Visit: Yes ED Registration Date: 08/21/16 Care time: The patient presented to the Emergency Department on the above date and was hospitalized for further evaluation of their emergent condition. - New Patient This patient is new to me today: No - Critical Care Critical Care patient: No
[2016-09-04] MEDS: PIPERACILLIN/TAZOB 3.375 GM 50 ML IVPB SCH ×2 (02:05→11:05)
[2016-09-04] MEDS: VANCOMYCIN 1,250 MG in DEXTROSE 5%-WATER - 250 ML IVPB SCH (06:53)
[2016-09-04 07:12] VITALS: BP 138/86; PULSE 89; TEMP 97.6
[2016-09-04 09:07] LABS: BASOPHIL 0.5 % (0-2.0); EOSINOPHIL 1.8 % (0-4.5); MCH 29.6 pg (25.7-33.7); MCHC 34.9 g/dl (32.0-35.9); MEAN CELL VOLUME 84.9 fl (80-96); NEUTROPHILS 60.7 % (42.8-82.8); PLATELET COUNT 386 K/MM3 (134-434); WHITE BLOOD COUNT 8.3 K/mm3 (4.0-10.0)
--- NOTE | 2016-09-04 10:04 | DS ---
Physical Exam: SUBJECTIVE: Patient seen and examined OBJECTIVE: Vital Signs Period Temp Pulse Resp BP Sys/Forman Pulse Ox Last 24 Hr 97.6 F-98.6 F 77-89 18-20 110-138/47-95 98-98 PHYSICAL EXAM GENERAL: The patient is awake, alert, and fully oriented, in no acute distress. HEAD: Normal with no signs of trauma. EYES: PERRL, extraocular movements intact, sclera anicteric, conjunctiva clear. ENT: Ears normal, nares patent, oropharynx clear without exudates, moist mucous membranes. NECK: Trachea midline, full range of motion, supple. LUNGS: Breath sounds equal, clear to auscultation bilaterally, no wheezes, no crackles, no accessory muscle use. HEART: Regular rate and rhythm, S1, S2 without murmur, rub or gallop. ABDOMEN: Soft, nontender, nondistended, normoactive bowel sounds, no guarding, no rebound, no hepatosplenomegaly, no masses. EXTREMITIES: 2+ pulses, warm, well-perfused, no edema. NEUROLOGICAL: Cranial nerves II through XII grossly intact. Normal speech, gait not observed. PSYCH: Normal mood, normal affect. SKIN: Warm, dry, normal turgor, no rashes or lesions noted. LABS Laboratory Results - last 24 hr 09/04/16 07:30 WBC 8.3 RBC 3.89 L Hgb 11.5 L Hct 33.0 L MCV 84.9 MCHC 34.9 RDW 14.0 Plt Count 386 MPV 7.0 L Neutrophils % 60.7 Lymphocytes % 28.0 Monocytes % 9.0 Eosinophils % 1.8 Basophils % 0.5 HOSPITAL COURSE: Date of Admission:08/21/16 Date of Discharge: 09/04/16 Discharge Summary Reason For Visit: CELLULITIS RIGHT KNEE Current Active Problems Cellulitis (Acute) Septic infrapatellar bursitis of right knee (Acute) Condition: Stable - Instructions Diet, Activity, Other Instructions: You may resume a regular diet and activity as tolerated. Please schedule appointments to follow up with Dr. Lowry and Dr. Gomes. Disposition: HOME - Home Medications Comprehensive Discharge Medication List: Ambulatory Orders Amoxicillin/Potassium Clav [Augmentin 875-125 Tablet] 1 each PO BID #20 tablet 09/04/16 Clindamycin [Cleocin -] 300 mg PO Q8H #30 capsule 09/04/16 Oxycodone HCl [Roxicodone -] 5 mg PO Q6H PRN #10 tablet MDD 4 tabs 09/04/16 - Discharge Referral Referred to [facility] No
[2016-09-04] MEDS: DOCUSATE SODIUM 100 MG CAPSULE (FP) PO SCH (11:03)
[2016-09-04] MEDS: ENOXAPARIN NA (PORCINE) 40 MG/0.4 ML DISP.SYRIN SQ SCH (11:03)
[2016-09-04] MEDS: POLYETHYLENE GLYCOL 3350 119 GM BTL PO SCH (11:05)
--- NOTE | 2016-09-04 12:15 | PN ---
Progress Note, Physician History of Present Illness: patient stable doing well no issues feels better - Objective Vital Signs: Vital Signs Temperature 97.6 F 09/04/16 07:00 Pulse Rate 89 09/04/16 07:00 Respiratory Rate 20 09/04/16 07:00 Blood Pressure 138/86 09/04/16 07:00 O2 Sat by Pulse Oximetry (%) 98 09/03/16 21:00 Constitutional: Yes: No Distress, Calm Cardiovascular: Yes: Regular Rate and Rhythm Respiratory: Yes: Regular, CTA Bilaterally Gastrointestinal: Yes: Normal Bowel Sounds, Soft Musculoskeletal: Yes: Other Extremities: Yes: Other Wound/Incision: Yes: Dressing Dry and Intact Neurological: Yes: Alert, Oriented Labs: CBC, BMP 09/04/16 07:30 09/01/16 07:45 Assessment/Plan cx report noted i think this is a septic joint septic joint cellulitis of the rt knee fever wbc has normalized crp result noted plan continue abx for now will check esr crp tomorrow patient probably can go home on tuesday if wbc remains normal will need 10 to 12 days of abx from tuesday should be able to switch to oral oral abx will be clinda 300mg every 8hrly and augmenting 875 mg twie aday for another 10 days will see crp tomorrow and decide if he needs blood work up as outpatient
== END 2016-09-04 11:58 | disposition home or self-care (01) | DRG 558 ==
LOC: JER 12:08 → JERBED 15:31 → J5S 20:02
PROVIDERS: ADMIT Internal Medicine; ATTEND Internal Medicine
PROC: 0Y9F0ZZ Drainage of Right Knee Region, Open Approach (ICD-10-PCS; 2016-08-24)
PROC: 0Y9F0ZZ Drainage of Right Knee Region, Open Approach (ICD-10-PCS; 2016-08-24)
PROC: 0S9C3ZX Drainage of Right Knee Joint, Percutaneous Approach, Diagnostic (ICD-10-PCS; 2016-08-24)
PROC: 0Y9F3ZZ Drainage of Right Knee Region, Percutaneous Approach (ICD-10-PCS; 2016-08-24)
PROC: 0Y9F0ZX Drainage of Right Knee Region, Open Approach, Diagnostic (ICD-10-PCS; principal; 2016-08-24 18:00)
DX: M71.161 Other infective bursitis, right knee (principal); L03.115 Cellulitis of right lower limb; B96.89 Other specified bacterial agents as the cause of diseases classified elsewhere
CPT/HCPCS: 36415; 73562-TC-RT; 73718-TC; 73721-RT-TC; 80048; 80053; 80307; 83605; 85025; 85651; 86140; 87040; 87070; 87075; 87186; 87205; 93306-TC; 93971-TC; 94760; 97116-GP; 97161-GP; 97164-GP; 99283-25